=== PATIENT | female | born 1945 | race Caucasian/White ===

== ENCOUNTER 2017-05-11 14:59 | Inpatient (IN) | payer MEDICARE, OTHER ==
[~2017-05-11] VITALS: Ht 160 cm; Wt 68.5 kg
[~2017-05-11 14:59] MED LIST: LIDOCAINE HCL 1% PF 5 ML SYRINGE OTHER ONE; PROPOFOL 200 MG/20 ML AMP IV ONE; SUCCINYLCHOLINE CHLORIDE 100 MG/5 ML SYRINGE IV PUSH ONE
--- NOTE | 2017-05-11 15:46 | PD ---
HPI Chief Complaint: Psychiatric Symptoms Time Seen by Provider: 15:46 Travel History International Travel<30 days: No Contact w/Intl Traveler<30days: No History of Present Illness HPI 71-year-old patient brought in under the Champagne act from her residence with reports of increased psychotic symptoms, and angry outbursts as well as threatening behavior to staff. Patient is an unreliable historian due to her psychosis. She reportedly swallowed a piece of jewelry prior to arrival here. She has no known drug allergies. Call from the at 1900 hrs., patient was discussed in history filled in with history of taking lithium 20 years. Patient recently stopped taking her lithium 1 month ago due to questionable kidney issues. Patient's states that she became more more psychotic and angry over the past several days. He tried to get her to retake her lithium but she refused. This is why he Champagne acted her at this evening. [facility] Past Medical History Medical History: Unable to Obtain Social History Alcohol Use: No Tobacco Use: No Substance Use: No Allergies-Medications (Allergen,Severity, Reaction): Coded Allergies: No Allergy Information Available (Unverified , 05/11/17) Review of Systems ROS Limitations: Psychotic Except as stated in HPI: all other systems reviewed are Neg General / Constitutional: No: Fever Eyes: No: Visual changes HENT: No: Headaches Cardiovascular: No: Chest Pain or Discomfort Respiratory: No: Shortness of Breath Gastrointestinal: No: Abdominal Pain Genitourinary: No: Dysuria Musculoskeletal: No: Pain Skin: No Rash Neurologic: No: Weakness Psychiatric: Positive: Disorder of Thought, Mood Disorder, No: Depression, Suicidal Ideations, Homicidal Ideation Endocrine: No: Polydipsia Hematologic/Lymphatic: No: Easy Bruising Physical Exam Exam Limitations: Psychotic Narrative GENERAL: Patient appears stable. SKIN: Warm and dry. Normal color. Normal turgor. No signs of trauma HEAD: Atraumatic. Normocephalic. EYES: Pupils equal and round. No scleral icterus. No injection or drainage. ENT: No nasal bleeding or discharge. Mucous membranes pink and moist. Pharynx is clear NECK: Trachea midline. Supple and nontender. CARDIOVASCULAR: Regular rate and rhythm. RESPIRATORY: No accessory muscle use. Clear to auscultation. Breath sounds equal bilaterally. GASTROINTESTINAL: Abdomen soft, non-tender, nondistended. Hepatic and splenic margins not palpable. MUSCULOSKELETAL: Extremities without clubbing, cyanosis, or edema. No obvious deformities. NEUROLOGICAL: Awake and alert. No obvious cranial nerve deficits. Motor grossly within normal limits. Five out of 5 muscle strength in the arms and legs. Normal speech. Data Data Last Documented VS Vital Signs Date Time Temp Pulse Resp B/P (MAP) Pulse Ox O2 Delivery O2 Flow Rate FiO2 05/11/17 18:06 64 20 122/72 (89) 95 Room Air Orders Orders Complete Blood Count With Diff (05/11/17 15:49) Comprehensive Metabolic Panel (05/11/17 15:49) Thyroid Stimulating Hormone (05/11/17 15:49) Urinalysis - C+S If Indicated (05/11/17 15:49) Cath For Specimen (05/11/17 15:49) Psych Screen (05/11/17 15:49) Sodium Chloride 0.9% Flush (Ns Flush) (05/11/17 16:00) Haloperidol Inj (Haldol Inj) (05/11/17 16:00) Lorazepam Inj (Ativan Inj) (05/11/17 16:00) Restraints Violent (05/11/17 15:49) Drug Screen, Random Urine (05/11/17 15:49) Alcohol (Ethanol) (05/11/17 15:49) Diphenhydramine Inj (Benadryl Inj) (05/11/17 16:00) Chest, Single Ap (05/11/17 15:55) NPO (05/11/17 18:38) Labs Laboratory Tests Test 05/11/17 16:30 White Blood Count 9.0 TH/MM3 Red Blood Count 4.76 MIL/MM3 Hemoglobin 14.4 GM/DL Hematocrit 42.6 % Mean Corpuscular Volume 89.3 FL Mean Corpuscular Hemoglobin 30.3 PG Mean Corpuscular Hemoglobin Concent 33.9 % Red Cell Distribution Width 13.4 % Platelet Count 337 TH/MM3 Mean Platelet Volume 7.5 FL Neutrophils (%) (Auto) 59.2 % Lymphocytes (%) (Auto) 33.1 % Monocytes (%) (Auto) 6.3 % Eosinophils (%) (Auto) 0.7 % Basophils (%) (Auto) 0.7 % Neutrophils # (Auto) 5.3 TH/MM3 Lymphocytes # (Auto) 3.0 TH/MM3 Monocytes # (Auto) 0.6 TH/MM3 Eosinophils # (Auto) 0.1 TH/MM3 Basophils # (Auto) 0.1 TH/MM3 CBC Comment DIFF FINAL Differential Comment Urine Color YELLOW Urine Turbidity CLEAR Urine pH 5.0 Urine Specific [place] 1.014 Urine Protein NEG mg/dL Urine Glucose (UA) NEG mg/dL Urine Ketones NEG mg/dL Urine Occult Blood NEG Urine Nitrite NEG Urine Bilirubin NEG Urine Urobilinogen LESS THAN 2.0 MG/DL Urine Leukocyte Esterase NEG Urine WBC 1 /hpf Urine Squamous Epithelial Cells <1 /hpf Urine Mucus FEW /lpf Microscopic Urinalysis Comment CULT NOT INDICATED Blood Urea Nitrogen 23 MG/DL Creatinine 1.10 MG/DL Random Glucose 110 MG/DL Total Protein 7.4 GM/DL Albumin 4.0 GM/DL Calcium Level 9.5 MG/DL Alkaline Phosphatase 58 U/L Aspartate Amino Transf (AST/SGOT) 26 U/L Alanine Aminotransferase (ALT/SGPT) 33 U/L Total Bilirubin 0.3 MG/DL Sodium Level 140 MEQ/L Potassium Level 3.7 MEQ/L Chloride Level 109 MEQ/L Carbon Dioxide Level 22.7 MEQ/L Anion Gap 8 MEQ/L Estimat Glomerular Filtration Rate 49 ML/MIN Thyroid Stimulating Hormone 3rd Gen 3.230 uIU/ML Urine Opiates Screen NEG Urine Barbiturates Screen NEG Urine Amphetamines Screen NEG Urine Benzodiazepines Screen NEG Urine Cocaine Screen NEG Urine Cannabinoids Screen NEG Ethyl Alcohol Level LESS THAN 3 MG/DL MDM Medical Decision Making Medical Screen Exam Complete: Yes Emergency Medical Condition: Yes Medical Record Reviewed: Yes Differential Diagnosis Champagne act. Psychosis. Aggressive behavior. Metabolic abnormality. Narrative Course Psychiatric labs ordered as per protocol. Patient is given 2 mg lorazepam IV. Patient is given 50 mg Benadryl IV. Patient is given 5 mg Haldol IM. Soft restraints were applied. X-rays of the chest and abdomen are ordered to rule out foreign body. Chest x-ray shows: Radiopaque foreign body projecting over the distal esophagus. This measures approximately 3.4 x 0.9 cm. Labs are unremarkable. Calls placed to the wet room supervisor. Patient is discussed with Dr. Wynne. He recommends taking the patient to the OR for an endoscopy to remove the foreign body in the esophagus on x-ray. I feel this is medically necessary despite the patient's psychotic state and inability to consent. I cannot medically clear for psychiatric evaluation until this is performed. 1900 hrs. The patient is turned over to Fransisco Kaur PA-C Diagnosis Primary Impression: Esophagus, foreign body Qualified Codes: T18.108A - Unspecified foreign body in esophagus causing other injury, initial encounter Condition: Stable Hernandez Caldwell May 11, 2017 15:46
[2017-05-11] MEDS ORDERED: HALOPERIDOL LACTATE 5 MG/ML AMP IM ONE (16:00)
[2017-05-11] MEDS ORDERED: SODIUM CHLORIDE 0.9% FLUSH 10 ML FLUSH IVF PRN (16:00)
[2017-05-11] MEDS ORDERED: diphenhydrAMINE HCL 50 MG/ML VIAL IV PUSH ONE (16:00)
[2017-05-11] MEDS ORDERED: LORazepam 2 MG/ML VIAL IV PUSH ONE (16:00)
--- NOTE | 2017-05-11 16:15 | RADRPT ---
EXAM DATE/TIME: 05/11/2017 16:00 [facility] COMPARISON: No previous studies available for comparison. INDICATIONS : Swallowed jewlery. MEDICAL HISTORY : None. SURGICAL HISTORY : None. ENCOUNTER: Initial ACUITY: 1 day PAIN SCORE: 0/10 LOCATION: Bilateral chest FINDINGS: A single view of the chest demonstrates the lungs to be symmetrically aerated without evidence of mas s, infiltrate or effusion. The cardiomediastinal contours are unremarkable. Osseous structures are intact. There is a radiopaque density projecting in the region of the distal esophagus but CONCLUSION: 1. Radiopaque foreign body projecting over the distal esophagus. This measures approximately 3.4 x 0. 9 cm Ovidio Gonzales MD on May 11, 2017 at 16:13 Board Certified Radiologist. This report was verified electronically.
[2017-05-11 16:16] VITALS: BP 158/83; PULSE 79; RESP 20; O2SAT 100
[2017-05-11 16:30] VITALS: BP 163/78; PULSE 73; RESP 20; O2SAT 95
[2017-05-11 16:56] VITALS: BP 120/57; PULSE 65; RESP 20; O2SAT 95
[2017-05-11 17:02] LABS: AUTOMATED NEUTROPHIL # 5.3 TH/MM3 (1.8-7.7); BASOPHIL # 0.1 TH/MM3 (0-0.2); BASOPHIL % 0.7 % (0.0-2.0); EOSINOPHIL # 0.1 TH/MM3 (0-0.4); EOSINOPHIL % 0.7 % (0.0-4.0); HEMATOCRIT 42.6 % (35.0-46.0); HEMOGLOBIN 14.4 GM/DL (11.6-15.3); LYMPH % 33.1 % (9.0-44.0); MEAN CELL VOLUME 89.3 FL (80.0-100.0); MEAN CORPUSCULAR HEMOGLOBIN 30.3 PG (27.0-34.0); MEAN CORPUSCULAR HGB CONC 33.9 % (32.0-36.0); MEAN PLATELET VOLUME 7.5 FL (7.0-11.0); MONO % 6.3 % (0.0-8.0); MONOCYTE # 0.6 TH/MM3 (0-0.9); NEUT % 59.2 % (16.0-70.0); PLATELET COUNT 337 TH/MM3 (150-450); RED BLOOD COUNT 4.76 MIL/MM3 (4.00-5.30); RED CELL DISTRIBUTION WIDTH 13.4 % (11.6-17.2)
[2017-05-11 17:05] LABS: BILIRUBIN, URINE NEG (NEG); BLOOD, URINE NEG (NEG); GLUCOSE,URINE NEG (NEG); KETONE, URINE NEG (NEG); MUCUS URINE FEW /lpf (OCC); NITRITE,URINE NEG (NEG); SQUAMOUS EPITHELIAL CELL URINE <1 /hpf (0-5); URINE COLOR YELLOW (YELLW/STRAW); URINE LEUKOCYTE ESTERASE NEG (NEG)
[2017-05-11 17:25] LABS: ALT (GPT) 33 U/L (10-53); AST (GOT) 26 U/L (15-37); BICARBONATE 22.7 MEQ/L (21.0-32.0); BLOOD UREA NITROGEN 23 MG/DL (7-18); CALCIUM 9.5 MG/DL (8.5-10.1); CHLORIDE 109 MEQ/L (98-107); GLOMERULAR FILTRATION RATE 49 ML/MIN (>89); GLUCOSE,RANDOM 110 MG/DL (74-106); SODIUM (NA) 140 MEQ/L (136-145)
[2017-05-11 17:32] LABS: ALKALINE PHOSPHATASE 58 U/L (45-117); TOTAL BILIRUBIN ADULT 0.3 MG/DL (0.2-1.0); TOTAL PROTEIN 7.4 GM/DL (6.4-8.2)
[2017-05-11 18:06] VITALS: BP 122/72; PULSE 64; RESP 20; O2SAT 95
--- NOTE | 2017-05-11 19:58 | GIPROC ---
[facility] [address] [facility]. [facility], [address] EGD PROCEDURE REPORT EXAM DATE: 05/11/2017 PATIENT NAME: Jodi Warren MR #: [id number] BIRTHDATE: 1945 ATTENDING: Diego Campos MD ORDER #: [id number] RESIDENTIAL BUILDING INSPECTOR: Gi Faclon and Jordan Ochoa STATUS: outpatient INDICATIONS: The patient is a 71 yr old female here for an EGD due to foreign body removal from esophagus PROCEDURE PERFORMED: EGD w/ fb removal MEDICATIONS: None and Per Anesthesia. TOPICAL ANESTHETIC: CONSENT: The patient understands the risks and benefits of the procedure and understands that these risks include, but are not limited to: sedation, allergic reaction, infection, perforation and/or bleeding. Alternative means of evaluation and treatment include, among others: physical exam, x-rays, and/or surgical intervention. The patient elects to proceed with this endoscopic procedure. medical equipment was checked for proper function. Hand hygiene and appropriate measures for infection prevention was taken. After the risks, benefits and alternatives of the procedure were thoroughly explained, Informed consent was verified, confirmed and timeout was successfully executed by the treatment team. The patient was anesthetized with topical anesthesia and the Pentax [id number] endoscope was introduced through the mouth and advanced to the second portion of the duodenum. Retroflexed views revealed no abnormalities and Retroflexed views revealed The gastroscope was then slowly withdrawn and removed. ESOPHAGUS: The mucosa of the esophagus appeared normal. STOMACH: FOREIGN BODY IN ESOPHAGUS, metal pendant. Grabbed with rothnet and removed through the mouth easily. DUODENUM: The duodenal mucosa appeared normal. ADVERSE EVENTS: There were no complications. IMPRESSIONS: 1. The esophagus appeared normal 2. FOREIGN BODY IN ESOPHAGUS, metal pendant. Grabbed with rothnet and removed through the mouth easily 3. Normal duodenal mucosa 4. Retroflexed views revealed no abnormalities 5. Retroflexed views revealed RECOMMENDATIONS: Admit to hospital PATIENT CONDITION: stable DISPOSITION: Inpatient REPEAT EXAM: Return as needed for EGD Diego Campos MD eSigned: Diego Campos MD 05/11/2017 7:57 PM cc: PATIENT NAME: Jodi Warren MR#: [id number]
[2017-05-11] MEDS ORDERED: DO NOT ADM ANY ANTICOAGULANT DRUGS PRN (20:06)
[2017-05-11 21:13] VITALS: BP 164/76; PULSE 59; RESP 15; TEMP 98.1; O2SAT 99
--- NOTE | 2017-05-12 00:51 | MB ---
cc: Diego Campos MD,Kenzie Baca DATE OF CONSULT: 05/11/2017 REASON FOR CONSULTATION: Esophageal foreign body. Ms. Warren is a 71-year-old lady who basically was brought in under a Champagne Act because of increased psychotic ideation. Apparently the patient swallowed a piece of her jewelry just prior to arrival. An x-ray was obtained in the emergency room that showed a 3.2 cm metal object in the distal esophagus. GI service was then consulted for foreign body removal. The patient herself is very psychotic, unable to provide any history. History obtained from discussion with the patient's over the phone and from review of medical records. PAST MEDICAL HISTORY: None obtained at this time. SOCIAL HISTORY: No tobacco, no alcohol reported. PAST SURGICAL HISTORY: Unknown. ALLERGIES: NONE DOCUMENTED. REVIEW OF SYSTEMS: The patient is psychotic. She is able to swallow her saliva. Does not appear to be in any visible pain. PHYSICAL EXAMINATION: GENERAL: Reveals a well nourished lady in no apparent distress. VITAL SIGNS: Stable. HEAD AND NECK: Anicteric sclerae. CHEST: Bilaterally ____. ABDOMEN: Soft. Nontender, no hepatosplenomegaly. Bowel sounds are present. CENTRAL NERVOUS SYSTEM: Nonfocal. RECTAL: Deferred at this time. LABORATORY DATA: White cell count is 9, hemoglobin is 14. Creatinine 1.10. Liver function tests are normal. A chest x-ray shows a 3.4 x 0.9 cm metal object projecting over the distal esophagus. IMPRESSION: Esophageal foreign body. RECOMMENDATIONS: Emergent EGD is planned with general anesthesia to remove this foreign body. Apparently this is a metal pendant. Informed consent was obtained from the patient's . Risks of the procedure were explained to him. Further recommendations to follow after the endoscopy. Thank you for this referral. Diego Campos MD HZ/rt , 08:09 PM , 12:49 AM
[2017-05-12 07:15] VITALS: BP 148/67; PULSE 55; RESP 19; O2SAT 97
[2017-05-12 10:00] VITALS: BP 150/77; PULSE 55; RESP 18; O2SAT 97
[2017-05-12 11:30] VITALS: BP 145/75; PULSE 75; RESP 18; TEMP 97.7; O2SAT 98
[2017-05-12] MEDS ORDERED: ALUMINUM/MAGNESIUM/SIMETH 30 ML CUP PO PRN ×2 (11:30)
[2017-05-12] MEDS ORDERED: MAGNESIUM HYDROXIDE SUSP 30 ML CUP PO PRN ×2 (11:30)
[2017-05-12] MEDS ORDERED: NICOTINE 21 MG/24 HR PATCH T-DERMAL SCH (11:30)
[2017-05-12] MEDS ORDERED: LORazepam 2 MG/ML VIAL IM PRN ×4 (11:30)
[2017-05-12] MEDS ORDERED: LORazepam 1 MG TAB PO PRN ×2 (11:30)
[2017-05-12] MEDS ORDERED: LORazepam 0.5 MG TAB PO PRN ×2 (11:30)
[2017-05-12] MEDS ORDERED: ACETAMINOPHEN 325 MG TAB PO PRN (11:30)
[2017-05-12] MEDS ORDERED: VITA500012 PO (11:41)
[2017-05-12] MEDS ORDERED: AMLO10 PO (11:41)
[2017-05-12] MEDS ORDERED: HYDR-3799 PO (11:41)
[2017-05-12] MEDS ORDERED: LITH150C PO (11:41)
[2017-05-12] MEDS ORDERED: LEVO100T5 PO (11:41)
--- NOTE | 2017-05-12 14:52 | HHI.HP ---
Provisional Diagnosis Admission Date May 12, 2017 at 11:23 [place] I. Unspecified psychosis, history of bipolar disorder [place] II. Deferred [place] III. Hypertension, hypothyroidism Certification of Person's Competence To Provide Express and Informed Consent I have personally examined Jodi Warren , a person being served at [facility] on, May 12, 2017 14:42. Express and informed consent means consent voluntarily given in writing, by a competent person, after sufficient explanation and disclosure of the subject matter involved to enable the person to make a knowing and willful decision without any element of force, fraud, deceit, duress, or other form of constraint or coercion. This person is 18 years of age or older, is not now known to be incompetent to consent to treatment with a guardian advocate, and does not have a health care surrogate or proxy currently making medical treatment decisions. I have found this person to be one of the following: [] Competent to provide express and informed consent, as defined above, for voluntary admission to this facility and is competent to provide express and informed consent for treatment. He/she has the consistent capacity to make well reasoned, willful, and knowing decisions concerning his or her medical or mental health treatment. The person fully and consistently understands the purpose of the admission for examination/placement and is fully capable of personally exercising all rights assured under [place] Incompetent to provide express and informed consent to voluntary admission, and this is incompetent to provide express and informed consent to treatment. The person must be transferred to involuntary status and a petition for a guardian advocate filed with the Circuit Court. [x] Refusing to provide express and informed consent to voluntary admission but is competent to provide express and informed consent for treatment. The person must be discharged or transferred to involuntary status. Form shall be completed within 24 hours of a person's arrival at the receiving facility and filed in the clinical record of each person: 1. Admitted on a voluntary basis 2. Permitted to provide express and informed consent to his/her own treatment 3. Allowed to transfer from involuntary to voluntary status 4. Prior to permitting a person to consent to his or her own treatment after having been previously found incompetent to consent to treatment. History of Present Illness Capacity: Lacks Capacity HPI The patient is a 71-year-old, domiciled with her in [place], retired, supported by Social Security, she has psychiatric history of bipolar disorder, previous psychiatric hospitalizations, last hospitalization was in [place] in 1993, she was in lithium for many years, no psychotropics at this moment, she denies previous suicidal attempts, denies history of drug use and alcohol use, medical history of hypertension and hypothyroidism, who was brought in under the Champagne act from her residence with reports of increased psychotic symptoms, and angry outbursts as well as threatening behavior to staff. Patient is an unreliable historian due to her psychosis. She reportedly swallowed a piece of jewelry prior to arrival here. Collateral information from her , [phone], He is stays Patient was discussed in history filled in with history of taking lithium 20 years. Patient recently stopped taking her lithium 1 month ago due to questionable kidney issues. Patient's states that she became more more psychotic and angry over the past several days. He tried to get her to retake her lithium but she refused. This is why he Champagne acted her at this evening. On psychiatric evaluation the patient is oppositional, resistant. But she was sensitive to redirection. The patient is fully oriented 3, at the beginning very reticent. Superficial about circumstances that brought her to the hospital. She denies having any knowledge about the reason she is here. She says that in the last days she has been feeling like objects in her house are trying to communicate with her. She says that she feels sensitive to the surrounding feel like evil is around. Sometime of the interview the patient becomes disorganized and tangential, but easily redirectable. The patient reports sad mood, frequent mood swings, interpersonal problem with her significant other, lack of energy, poor sleep at night, but she denies anhedonia, she denies hopelessness, helplessness, she denies suicidal and homicidal ideation, she denies visual and auditory hallucinations. Review of Systems Constitutional: DENIES: Diaphoretic episodes, Fatigue, Fever, Weight gain, Weight loss, Chills, Dizziness, Change in appetite, Night Sweats Endocrine: DENIES: Abnorml menstrual pattern, Heat/cold intolerance, Polydipsia , Polyuria, Polyphagia Eyes: DENIES: Blurred vision, Diplopia, Eye inflammation, Eye pain, Vision loss , Photosensitivity, Double Vision Ears, nose, mouth, throat: DENIES: Tinnitus, Hearing loss, Vertigo, Nasal discharge, Oral lesions, Throat pain, Hoarseness, Ear Pain, Running Nose, Epistaxis, Sinus Pain, Toothache, Odynophagia Respiratory: DENIES: Apneas, Cough, Snoring, Wheezing, Hemoptysis, Sputum production, Shortness of breath Cardiovascular: DENIES: Chest pain, Palpitations, Syncope, Dyspnea on Exertion , PND, Lower Extremity Edema, Orthopnea, Claudication Gastrointestinal: DENIES: Abdominal pain, Black stools, Bloody stools, Constipation, Diarrhea, Nausea, Vomiting, Difficulty Swallowing, Anorexia Genitourinary: DENIES: Abnormal vaginal bleeding, Dysmenorrhea, Dyspareunia, Sexual dysfunction, Urinary frequency, Urinary incontinence, Urgency, Hematuria , Dysuria, Nocturia, Vaginal discharge Musculoskeletal: DENIES: Joint pain, Muscle aches, Stiffness, Joint Swelling, Back pain, Neck pain Integumentary: DENIES: Abnormal pigmentation, Pruritus, Rash, Nail changes, Breast masses, Breast skin changes, Nipple discharge Hematologic/lymphatic: DENIES: Bruising, Lymphadenopathy Immunologic/allergic: DENIES: Eczema, Urticaria Neurologic: DENIES: Abnormal gait, Headache, Localized weakness, Paresthesias, Seizures, Speech Problems, Tremor, Poor Balance Psychiatric: COMPLAINS OF: Confusion, Delusions, DENIES: Anxiety, Mood changes , Depression, Hallucinations, Agitation, Suicidal Ideation, Homicidal Ideation Past Psych History Violence risk - others (6 mos) Increased Substance Abuse History Drugs/Alcohol past 12 months Denies substance abuse and alcohol abuse Past Family Social History Coded Allergies: No Allergy Information Available (Unverified , 05/11/17) Reported Medications Ergocalciferol (Ergocalciferol) 50,000 Unit Cap, 69999 UNITS PO WEEKLY for Nutritional Supplement, #56 CAP 05/12/17 Amlodipine (Norvasc) 10 Mg Tab, 10 MG PO DAILY for Blood Pressure Management, # 30 TAB 0 Refills 05/12/17 Levothyroxine (Levothyroxine) 100 Mcg Tab, 100 MCG PO DAILY for Thyroid, #30 TAB 0 Refills 05/12/17 [place] Carbonate ([place] Carbonate) 150 Mg Cap, 150 MG PO TID, CAP 0 Refills 05/12/17 Hydralazine HCl (Hydralazine HCl) 25 Mg Tablet, 25 MG PO TID for Blood Pressure Management, #90 TAB 0 Refills 05/12/17 Current Medications Medications (Trade) Dose Ordered Sig/Renata Route Start Time Stop Time Status Last Admin (NS Flush) 2 ml UNSCH PRN IVF 05/11/17 16:00 05/11/17 16:12 Miscellaneous Information ALL NURSING DEPARTME... UNSCH PRN .XX 05/11/17 20:06 05/12/17 20:05 (Tylenol) 650 mg Q4H PRN PO 05/12/17 11:30 (Ativan) 0.5 mg Q12H PRN PO 05/12/17 11:30 (Ativan Inj) 0.5 mg Q12H PRN IM 05/12/17 11:30 (Milk Of Magnesia Liq) 30 ml DAILY PRN PO 05/12/17 11:30 (Mag-Al Plus Susp Liq) 30 ml Q6H PRN PO 05/12/17 11:30 (Habitrol 21 Mg Patch.24 Hr) 1 patch DAILY T-DERMAL 05/12/17 11:30 (SEROquel) 12.5 mg BID@09,12 PO 05/13/17 09:00 UNV Family Psych History He has a son with bipolar disorder Social History Patient was born in [place], she lives in [place] in [place] with her , 2 kids, retired, highest level of education is college Patient's Strengths (min. 2) Family support Physical Exam Vital Signs Vital Signs Date Time Temp Pulse Resp B/P (MAP) Pulse Ox O2 Delivery O2 Flow Rate FiO2 05/12/17 11:35 05/12/17 11:30 97.7 75 18 98 05/12/17 10:00 Room Air 05/11/17 21:00 2 Lab Results Test 05/11/17 16:30 White Blood Count 9.0 TH/MM3 Red Blood Count 4.76 MIL/MM3 Hemoglobin 14.4 GM/DL Hematocrit 42.6 % Mean Corpuscular Volume 89.3 FL Mean Corpuscular Hemoglobin 30.3 PG Mean Corpuscular Hemoglobin Concent 33.9 % Red Cell Distribution Width 13.4 % Platelet Count 337 TH/MM3 Mean Platelet Volume 7.5 FL Neutrophils (%) (Auto) 59.2 % Lymphocytes (%) (Auto) 33.1 % Monocytes (%) (Auto) 6.3 % Eosinophils (%) (Auto) 0.7 % Basophils (%) (Auto) 0.7 % Neutrophils # (Auto) 5.3 TH/MM3 Lymphocytes # (Auto) 3.0 TH/MM3 Monocytes # (Auto) 0.6 TH/MM3 Eosinophils # (Auto) 0.1 TH/MM3 Basophils # (Auto) 0.1 TH/MM3 CBC Comment DIFF FINAL Differential Comment Urine Color YELLOW Urine Turbidity CLEAR Urine pH 5.0 Urine Specific [place] 1.014 Urine Protein NEG mg/dL Urine Glucose (UA) NEG mg/dL Urine Ketones NEG mg/dL Urine Occult Blood NEG Urine Nitrite NEG Urine Bilirubin NEG Urine Urobilinogen LESS THAN 2.0 MG/DL Urine Leukocyte Esterase NEG Urine WBC 1 /hpf Urine Squamous Epithelial Cells <1 /hpf Urine Mucus FEW /lpf Microscopic Urinalysis Comment CULT NOT INDICATED Blood Urea Nitrogen 23 MG/DL Creatinine 1.10 MG/DL Random Glucose 110 MG/DL Total Protein 7.4 GM/DL Albumin 4.0 GM/DL Calcium Level 9.5 MG/DL Alkaline Phosphatase 58 U/L Aspartate Amino Transf (AST/SGOT) 26 U/L Alanine Aminotransferase (ALT/SGPT) 33 U/L Total Bilirubin 0.3 MG/DL Sodium Level 140 MEQ/L Potassium Level 3.7 MEQ/L Chloride Level 109 MEQ/L Carbon Dioxide Level 22.7 MEQ/L Anion Gap 8 MEQ/L Estimat Glomerular Filtration Rate 49 ML/MIN Thyroid Stimulating Hormone 3rd Gen 3.230 uIU/ML Urine Opiates Screen NEG Urine Barbiturates Screen NEG Urine Amphetamines Screen NEG Urine Benzodiazepines Screen NEG Urine Cocaine Screen NEG Urine Cannabinoids Screen NEG Ethyl Alcohol Level LESS THAN 3 MG/DL Mental Status Examination Appearance: Appropriate Consciousness: Alert Orientation: x4 Motor Activity: Normal gait Speech: Hesitant, Slow Language: Adequate Fund of Knowledge: Adequate Attention and Concentration: Adequate Memory: Unremarkable Mood: Angry, Sad Affect: Irritable Thought Process & Associations: Disorganized (at times) Thought Content: Appropriate Hallucination Type: None Delusion Type: None Suicidal Ideation: No Suicidal Plan: No Suicidal Intention: No Homicidal Ideation: No Homicidal Plan: No Homicidal Intention: No Insight: Poor Judgment: Poor Assessment & Plan Problem List: (1) Unspecified psychosis ICD Codes: F29 - Unspecified psychosis not due to a substance or known physiological condition Assessment & Plan: On psychiatric evaluation today the patient at the beginning guarded, internally preoccupied, seems to be paranoid. With redirection she was able to cooperate a little more, but reports symptoms of depression and also reality distortion. She denies suicidal and homicidal ideation, she denies visual and auditory hallucinations. As per report , the patient has been increasingly agitated, disorganized, mostly in the context of stopping her lithium a month ago. The patient has history of bipolar disorder, previous psychiatric hospitalizations she has been stable on lithium for several years. At this moment the patient seems to be in danger to self and others due to level of psychosis. She needs psychiatric hospitalization for stabilization. I'm going to start a low dose of Seroquel for the psychosis, 12.5 mg twice a day. We will consult psychiatry for second opinion, hospitalist to continue medical care of her underlying medical conditions. Her labs are unremarkable. telephone worker intervention. Collateral information, individual and group therapies, to coordinating a safe discharge. Assessment & Plan Estimated LOS: Gio Irby MD May 12, 2017 14:52
[2017-05-12 18:31] VITALS: BP 146/71; PULSE 75; RESP 16; TEMP 98.4; O2SAT 97
[2017-05-12] MEDS ORDERED: LEVO50TA4 PO (20:33)
[2017-05-12] MEDS ORDERED: COLA100C5 PO (20:33)
[2017-05-13 06:00] VITALS: BP 166/80; PULSE 62; RESP 15; TEMP 97.6; O2SAT 99
[2017-05-13] MEDS ORDERED: NICOTINE 21 MG/24 HR PATCH T-DERMAL SCH (09:00)
[2017-05-13] MEDS ORDERED: QUEtiapine FUMARATE 25 MG TAB PO SCH (09:00)
--- NOTE | 2017-05-13 14:09 | HHI.PYPN ---
Subjective Remarks Is a request for second opinion. Patient was seen and case discussed with nursing. Admission note was reviewed and I agree with the contents. Patient remains with various restoration beliefs. She says she swallowed pieces of jewelry to protect herself against the devil. She noticed dragons that her was putting around and believes that he was worshiping Satan. She is alert and oriented 3 but is poor insight into her delusions. She denies suicidal or homicidal ideation intent or plan Mental Status Examination Appearance: Appropriate Consciousness: Alert Orientation: x4 Motor Activity: Normal gait Speech: Hesitant, Slow Language: Adequate Fund of Knowledge: Adequate Attention and Concentration: Adequate Memory: Unremarkable Mood: Angry, Sad Affect: Irritable Thought Process & Associations: Intact Thought Content: Bizarre thinking Hallucination Type: None Delusion Type: Bizarre (bizarre restoration beliefs) Suicidal Ideation: No Suicidal Plan: No Suicidal Intention: No Homicidal Ideation: No Homicidal Plan: No Homicidal Intention: No Insight: Poor Judgment: Poor Results Vitals/IOs Vital Signs Date Time Temp Pulse Resp B/P (MAP) Pulse Ox O2 Delivery O2 Flow Rate FiO2 05/13/17 06:00 97.6 62 15 166/80 (108) 99 05/12/17 10:00 Room Air 05/11/17 21:00 2 Intake and Output 05/13/17 05/13/17 05/14/17 08:00 16:00 00:00 Intake Total 480 ml Balance 480 ml Assessment & Plan Problem List: (1) Unspecified psychosis ICD Codes: F29 - Unspecified psychosis not due to a substance or known physiological condition Assessment & Plan Agree with first opinion to continue petition. Criteria include acute psychosis Justification for Cont. Inpt. Patient would decompensate in a less restrictive setting Rocael Wang DO May 13, 2017 14:09
[2017-05-13 18:00] VITALS: BP 171/82; PULSE 71; RESP 16; TEMP 97.9; O2SAT 98
[2017-05-13] MEDS ORDERED: hydrALAZINE HCL 10 MG TAB PO ONE (22:00)
[2017-05-13] MEDS ORDERED: hydrALAZINE HCL 25 MG TAB PO SCH (22:00)
[2017-05-14 05:15] VITALS: BP 151/89; PULSE 70; RESP 17; TEMP 98.1; O2SAT 98
[2017-05-14] MEDS ORDERED: LEVOTHYROXINE SODIUM 50 MCG TAB PO SCH (07:00)
[2017-05-14] MEDS: QUEtiapine FUMARATE 25 MG TAB PO SCH ×2 (08:24→12:00)
[2017-05-14] MEDS: hydrALAZINE HCL 25 MG TAB PO SCH ×3 (08:24→18:00)
[2017-05-14 09:43] LABS: BICARBONATE 26.3 MEQ/L (21.0-32.0); BLOOD UREA NITROGEN 18 MG/DL (7-18); CALCIUM 9.5 MG/DL (8.5-10.1); CHLORIDE 104 MEQ/L (98-107); CREATININE 0.98 MG/DL (0.50-1.00); GLOMERULAR FILTRATION RATE 56 ML/MIN (>89); GLUCOSE,RANDOM 84 MG/DL (74-106); SODIUM (NA) 140 MEQ/L (136-145)
[2017-05-14 09:45] LABS: CHOLESTEROL 242 MG/DL (120-200)
[2017-05-14 09:47] LABS: CHOLESTEROL/ HDL RATIO 3.93 RATIO; HDL CHOLESTEROL 61.5 MG/DL (40.0-60.0); LDL CHOLESTEROL 126 MG/DL (0-99); TRIGLYCERIDES 275 MG/DL (42-150)
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
[2017-05-14 14:41] VITALS: BP 176/84; PULSE 80
--- NOTE | 2017-05-14 15:43 | PD.TTN ---
Patient Problems 1. Discharge planning 2. Medication compliance 3. Knowledge deficit 4. Lack of coping skills Progress Toward Goals Provider Present: Dr. Clifford Irwin Provider Input: 05/14/17 new over the weekend Psychiatric Counselors Present: Puja Yu LCSW Psych Therapist Input: 05/14/17 patient is manic and not caring to be started on any meds and denied any medications- has supportive family but issues with and not wanting to return to him - daughters and sister willing to support upon discharge Group Spec/RT/OT/BENTON Present: CHETAN King Group Spec/RT/OT/BENTON Input: 05/14/17 new to Rec Puja Castro LCSW May 14, 2017 15:43
[2017-05-14 16:33] LABS: HEMOGLOBIN A1C 5.4 % (4.3-6.0)
[2017-05-14] MEDS ORDERED: hydrALAZINE HCL 25 MG TAB PO SCH (18:00)
[2017-05-14 18:05] VITALS: BP 166/86; PULSE 88; RESP 18; TEMP 98.1; O2SAT 99
[2017-05-15] MEDS: LEVOTHYROXINE SODIUM 100 MCG TAB PO SCH (05:52)
[2017-05-15] MEDS: LEVOTHYROXINE SODIUM 50 MCG TAB PO SCH (05:52)
[2017-05-15 06:04] VITALS: BP 137/69; PULSE 76; RESP 17; TEMP 98.3; O2SAT 97
[2017-05-15] MEDS ORDERED: LEVOTHYROXINE SODIUM 100 MCG TAB PO SCH (07:00)
[2017-05-15 09:00] VITALS: BP 163/82; PULSE 75
[2017-05-15] MEDS: DOCUSATE SODIUM 100 MG CAP PO SCH (09:04)
[2017-05-15] MEDS: hydrALAZINE HCL 25 MG TAB PO SCH ×3 (09:04→18:01)
[2017-05-15] MEDS: QUEtiapine FUMARATE 25 MG TAB PO SCH ×2 (09:06→12:00)
--- NOTE | 2017-05-15 11:58 | HHI.PYPN ---
Subjective Remarks Patient seen in [place] with nurse Wendy, chart review, patient showing mixed compliance medication, discussed patient with nurse. Patient continues with no behavioral issues cooperative with nurse and other patients. However this still remains the absolute denial of mental illness problems there is a superficial entitlement and cooperativeness there is incongruent with her behaviors. We have talked with patient's daughter and . The is the health care surrogate. We've arranged to meet with family at 10 AM tomorrow morning to discuss further care for this lady. She is scheduled for [place] [facility] in 2 days Review of Systems Except as stated in HPI: all other systems reviewed are Neg Mental Status Examination Appearance: Appropriate Consciousness: Alert Orientation: x4 Motor Activity: Normal gait Speech: Hesitant, Slow Language: Adequate Fund of Knowledge: Adequate Attention and Concentration: Adequate Memory: Unremarkable Mood: Angry, Sad Affect: Irritable Thought Process & Associations: Intact Thought Content: Bizarre thinking Hallucination Type: None Delusion Type: Bizarre (bizarre denominational beliefs) Suicidal Ideation: No Suicidal Plan: No Suicidal Intention: No Homicidal Ideation: No Homicidal Plan: No Homicidal Intention: No Insight: Poor Judgment: Poor Results Vitals/IOs Vital Signs Date Time Temp Pulse Resp B/P (MAP) Pulse Ox O2 Delivery O2 Flow Rate FiO2 05/15/17 09:00 75 163/82 (109) 05/15/17 06:04 98.3 17 97 05/12/17 10:00 Room Air 05/11/17 21:00 2 Intake and Output 05/15/17 05/15/17 05/16/17 08:00 16:00 00:00 Intake Total 240 ml Balance 240 ml Assessment & Plan Problem List: (1) Unspecified psychosis ICD Codes: F29 - Unspecified psychosis not due to a substance or known physiological condition (2) Bipolar disorder with psychotic features ICD Codes: F31.9 - Bipolar disorder, unspecified Assessment & Plan Estimated LOS: days patient remains intense vigilant somewhat vaguely psychotic though denying voices or visions suicidality homicidality. Patient has taken her Seroquel this a.m. Will meet with family tomorrow morning to discuss further care and treatment Justification for Cont. Inpt. At this time patient will decompensate of placed in a lower level of care Discharge Planning To be determined Request HC Surrog/Guard Advoc?: Yes Caliendo,Dar E. MD May 15, 2017 11:58
[2017-05-15] MEDS: ACETAMINOPHEN 325 MG TAB PO PRN ×2 (14:36→22:24)
[2017-05-15 16:27] VITALS: BP 187/96
[2017-05-15 17:51] VITALS: BP 153/88
[2017-05-15] MEDS: hydrOXYzine HCL 50 MG TAB PO PRN (23:19)
[2017-05-15] MEDS: cloNIDine HCL 0.1 MG TAB PO PRN (23:31)
[2017-05-16] MEDS: LEVOTHYROXINE SODIUM 50 MCG TAB PO SCH (05:44)
[2017-05-16] MEDS: LEVOTHYROXINE SODIUM 100 MCG TAB PO SCH (05:45)
[2017-05-16 05:50] VITALS: BP 97/52; PULSE 63; RESP 16; TEMP 98.1; O2SAT 97
[2017-05-16 06:00] VITALS: BP 97/53; PULSE 63; RESP 16; TEMP 98.1; O2SAT 97
[2017-05-16 08:35] VITALS: BP 117/60
[2017-05-16] MEDS: hydrALAZINE HCL 25 MG TAB PO SCH ×3 (08:36→17:49)
[2017-05-16] MEDS: QUEtiapine FUMARATE 25 MG TAB PO SCH (08:37)
[2017-05-16] MEDS: DOCUSATE SODIUM 100 MG CAP PO SCH (08:37)
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
[2017-05-16] MEDS ORDERED: QUEtiapine FUMARATE 25 MG TAB PO ONE (12:45)
--- NOTE | 2017-05-16 14:18 | PD.TTN ---
Patient Problems 1. Discharge planning 2. Medication compliance 3. Knowledge deficit 4. Lack of coping skills Progress Toward Goals Provider Present: Dr. Clifford Irwin Provider Input: 05/16/17 [address] to [address] tomorow, intend to medicate if possible/willing or per court, meeting toda 05/14/17 new over the weekend Psychiatric Counselors Present: Puja Yu LCSW Psych Therapist Input: 05/16/17 manic and relilgiously pre occupied and suspicious but cooperating not being a behavioral problem but no medications at all 05/14/17 patient is manic and not caring to be started on any meds and denied any medications- has supportive family but issues with and not wanting to return to him - daughters and sister willing to support upon discharge Group Spec/RT/OT/[place]ON Present: CHETAN King Group Spec/RT/OT/[place] Input: 05/16/17 attends select groups appropriately 05/14/17 new to Rec Puja Castro LCSW May 16, 2017 14:18
--- NOTE | 2017-05-16 16:37 | HHI.PR ---
Subjective Remarks Follow up on patient with HTN, hypothyroidism, BRIT. Patient seen and examined. Patient states she had a headache yesterday but it has resolved. She denies any fever or chills. She denies any chest pain or dyspnea. She denies any nausea, vomiting or abdominal pain. Patient informs me today she is able to take a 5mg Norvasc without having any problems with edema. Low BP, patient denies any dizziness or lightheadedness. Objective Vitals Vital Signs Date Time Temp Pulse Resp B/P (MAP) Pulse Ox O2 Delivery O2 Flow Rate FiO2 05/16/17 08:35 117/60 (79) 05/16/17 06:00 98.1 63 16 97/53 (68) 97 05/16/17 05:50 98.1 63 16 97/52 (67) 97 05/15/17 17:51 153/88 (109) I/O 05/15/17 05/15/17 05/15/17 05/16/17 05/16/17 05/16/17 07:00 15:00 23:00 07:00 15:00 23:00 Intake Total 240 ml 1320 ml 1560 ml Balance 240 ml 1320 ml 1560 ml Intake Oral 240 ml 1320 ml 1560 ml # Voids 1 2 3 2 Result Diagram: 05/14/17 0744 Imaging Last Impressions Chest X-Ray 05/11/17 1555 Signed Impressions: Service Date/Time: Thursday, May 11, 2017 16:00 - CONCLUSION: 1. Radiopaque foreign body projecting over the distal esophagus. This measures approximately 3.4 x 0.9 cm Ovidio Gonzales MD Objective Remarks GENERAL: This is a well-nourished, well-developed female patient, in no apparent distress. Awake and alert. Appears comfortable. SKIN: Cool and dry. HEAD: Atraumatic. Normocephalic. EYES: Extraocular motions intact. No scleral icterus. No injection or drainage. ENT: Nose without bleeding or purulent drainage. Airway patent. MMM. NECK: Trachea midline. CARDIOVASCULAR: Regular rate and rhythm without murmurs, gallops, or rubs. RESPIRATORY: Clear to auscultation. Breath sounds equal bilaterally. No wheezes , rales, or rhonchi. GASTROINTESTINAL: Abdomen soft, non-tender, nondistended. MUSCULOSKELETAL: Extremities without clubbing, cyanosis, or edema. NEUROLOGICAL: Awake and alert. Able to move all extremities spontaneously. No focal neurologic findings appreciated. Normal speech. Medications and IVs Current Medications Medications (Trade) Dose Ordered Sig/Renata Route Start Time Stop Time Status Last Admin (NS Flush) 2 ml UNSCH PRN IVF 05/11/17 16:00 05/11/17 16:12 (Tylenol) 650 mg Q4H PRN PO 05/12/17 11:30 05/15/17 22:24 (Ativan) 0.5 mg Q12H PRN PO 05/12/17 11:30 Future Hold (Ativan Inj) 0.5 mg Q12H PRN IM 05/12/17 11:30 Future Hold (Milk Of Magnesia Liq) 30 ml DAILY PRN PO 05/12/17 11:30 (Mag-Al Plus Susp Liq) 30 ml Q6H PRN PO 05/12/17 11:30 (Norvasc) 10 mg DAILY PO 05/14/17 09:00 05/16/17 08:37 (Atarax) 50 mg Q6H PRN PO 05/14/17 13:45 05/15/17 23:19 (Colace) 100 mg DAILY PO 05/15/17 09:00 05/16/17 08:37 (Synthroid) 50 mcg DAILY@0600 PO 05/15/17 06:00 05/16/17 05:44 (Synthroid) 100 mcg DAILY@0600 PO 05/15/17 06:00 05/16/17 05:45 (Catapres) 0.1 mg Q6H PRN PO 05/14/17 14:00 05/15/17 23:31 (SEROquel) 25 mg BID@09,12 PO 05/17/17 09:00 (Apresoline) 25 mg TID PO 05/16/17 18:00 A/P Assessment and Plan 71-year-old female with a past medical history significant for hypertension, bipolar disorder, chronic kidney disease stage III and hypothyroidism who is admitted to inpatient psychiatric unit after she was brought in under [place] act for acute psychosis. Hospitalist services have been consulted for medical management. Bipolar disorder Acute psychosis -Recently titrated off her lithium due to worsening kidney function -UDS unremarkable -Management per psychiatric team Hypertension, now hypotensive -Decrease dose of Norvasc to 5mg daily and hydralazine to 25mg TID. -Clonidine prn with parameters -Continue to monitor BP and adjust treatment accordingly Hypothyroidism -Continue patient on home dose of levothyroxine 100 g Sunday and 50 g Sunday -TSH within normal limits Dyslipidemia -Discussed with patient and initiation of statin therapy. Patient declines at this time due to trying to limit the number of medications she takes. She prefers to try lifestyle modification. -Recommend patient have repeat lipid profile done in 6-8 weeks as outpatient with her PCP. Tinnitus -Patient has upcoming appointment with ENT as outpatient BRIT on CKD, stage 3 -Resolved -Avoid nephrotoxic agents -Continue to monitor renal indices as indicated Recent ingestion of FB -Reportedly patient knowingly swallowed pendant to help cole off evil spirits -Patient seen in consultation by GI and underwent EGD with retrievable foreign body DVT prophylaxis -Patient is ambulatory Ashley Brandon May 16, 2017 16:37
[2017-05-16 17:30] VITALS: BP 125/60; PULSE 76; RESP 16; TEMP 97.4; O2SAT 98
[2017-05-17] MEDS: hydrOXYzine HCL 50 MG TAB PO PRN (03:08)
[2017-05-17 05:35] VITALS: BP 134/73; PULSE 68; RESP 16; TEMP 98.1; O2SAT 99
[2017-05-17] MEDS: LEVOTHYROXINE SODIUM 50 MCG TAB PO SCH (06:04)
[2017-05-17] MEDS: LEVOTHYROXINE SODIUM 100 MCG TAB PO SCH (06:04)
[2017-05-17] MEDS: hydrALAZINE HCL 25 MG TAB PO SCH ×3 (08:27→18:00)
[2017-05-17] MEDS: DOCUSATE SODIUM 100 MG CAP PO SCH (08:27)
[2017-05-17] MEDS: amLODIPine BESYLATE 5 MG TAB PO SCH (08:27)
[2017-05-17] MEDS: QUEtiapine FUMARATE 25 MG TAB PO SCH ×2 (08:30→12:00)
[2017-05-17 09:10] VITALS: BP 134/73; PULSE 68; RESP 16; TEMP 98.1
--- NOTE | 2017-05-17 12:26 | HHI.PYPN ---
Subjective Remarks Patient seen in [place] [facility], patient retained by Austyn Temple patient's also present in [place] [facility]. Patient became somewhat upset showing her delusions focused on her . will be health care surrogate. Patient has been started on Seroquel she is so far been compliant with that. For now continue treatment Review of Systems Except as stated in HPI: all other systems reviewed are Neg Mental Status Examination Appearance: Appropriate Consciousness: Alert Orientation: x4 Motor Activity: Normal gait Speech: Hesitant, Slow Language: Adequate Fund of Knowledge: Adequate Attention and Concentration: Adequate Memory: Unremarkable Mood: Angry, Sad Affect: Irritable Thought Process & Associations: Intact Thought Content: Bizarre thinking Hallucination Type: None Delusion Type: Bizarre (bizarre samaritan beliefs) Suicidal Ideation: No Suicidal Plan: No Suicidal Intention: No Homicidal Ideation: No Homicidal Plan: No Homicidal Intention: No Insight: Poor Judgment: Poor Results Vitals/IOs Vital Signs Date Time Temp Pulse Resp B/P (MAP) Pulse Ox O2 Delivery O2 Flow Rate FiO2 05/17/17 09:10 98.1 68 16 134/73 (93) 05/17/17 05:35 99 Intake and Output 05/17/17 05/17/17 05/18/17 08:00 16:00 00:00 Intake Total 480 ml 480 ml Balance 480 ml 480 ml Assessment & Plan Problem List: (1) Bipolar disorder, curr episode mixed, severe, with psychotic features ICD Codes: F31.64 - Bipolar disorder, current episode mixed, severe, with psychotic features Assessment & Plan Estimated LOS: days patient retained by [place] [facility] keyboarding teacher Windy, patient started now on Seroquel, to be health care surrogate. Justification for Cont. Inpt. At this time patient will decompensate if placed in a lower level of care Discharge Planning To be determined perhaps pick with family Request HC Surrog/Guard Advoc?: Yes Dar Irwin MD May 17, 2017 12:26
--- NOTE | 2017-05-17 14:27 | HHI.PR ---
Addendum to Inpatient Note Additional Information Patients BP well controlled on present regimen. Continue Norvasc 5mg daily and Hydralazine 25mg TID. Patient is stable from hospitalist standpoint. Will sign off for now. Please reconsult if needed. Ashley Brandon May 17, 2017 14:27
[2017-05-17 17:49] VITALS: BP 124/57; PULSE 76; RESP 16; TEMP 97.4; O2SAT 98
[2017-05-18] MEDS: LEVOTHYROXINE SODIUM 50 MCG TAB PO SCH (06:25)
[2017-05-18] MEDS: LEVOTHYROXINE SODIUM 100 MCG TAB PO SCH (06:25)
[2017-05-18 07:15] VITALS: BP 161/74; PULSE 76; RESP 18; TEMP 97.6; O2SAT 96
[2017-05-18] MEDS: DOCUSATE SODIUM 100 MG CAP PO SCH (08:16)
[2017-05-18] MEDS: amLODIPine BESYLATE 5 MG TAB PO SCH (08:16)
[2017-05-18] MEDS: QUEtiapine FUMARATE 25 MG TAB PO SCH ×3 (08:16→12:37)
[2017-05-18] MEDS: hydrALAZINE HCL 25 MG TAB PO SCH ×3 (08:16→17:44)
--- NOTE | 2017-05-18 11:45 | HHI.PYPN ---
Subjective Remarks Patient seen in day room with nurse Toby, chart review, patient discussed with nurse, patient compliant medications. calm pleasant with me complaining of some sleep issues with discussed medication for that. We will add Seroquel 50 mg at at bedtime to the regimen. Patient still has the same fearsome paranoia focused on her . Otherwise she is no behavior problems at this time Review of Systems Except as stated in HPI: all other systems reviewed are Neg Mental Status Examination Appearance: Appropriate Consciousness: Alert Orientation: x4 Motor Activity: Normal gait Speech: Hesitant, Slow Language: Adequate Fund of Knowledge: Adequate Attention and Concentration: Adequate Memory: Unremarkable Mood: Angry, Sad Affect: Irritable Thought Process & Associations: Intact Thought Content: Bizarre thinking Hallucination Type: None Delusion Type: Bizarre (bizarre zoroastrianism beliefs) Suicidal Ideation: No Suicidal Plan: No Suicidal Intention: No Homicidal Ideation: No Homicidal Plan: No Homicidal Intention: No Insight: Poor Judgment: Poor Results Vitals/IOs Vital Signs Date Time Temp Pulse Resp B/P (MAP) Pulse Ox O2 Delivery O2 Flow Rate FiO2 05/18/17 07:15 97.6 76 18 161/74 (103) 96 Assessment & Plan Problem List: (1) Bipolar disorder, curr episode mixed, severe, with psychotic features ICD Codes: F31.64 - Bipolar disorder, current episode mixed, severe, with psychotic features Assessment & Plan Estimated LOS: days patient remains somewhat delusional focused on her , though she is showing some increase compliance with medication she medication adjustment above Justification for Cont. Inpt. At this time patient will decompensate or placement a lower level of care Discharge Planning Hopefully to return home with Request HC Surrog/Guard Advoc?: Yes Dar Irwin MD May 18, 2017 11:45
[2017-05-18 20:20] VITALS: BP 168/76; PULSE 102; RESP 18; O2SAT 99
[2017-05-18] MEDS ORDERED: QUEtiapine FUMARATE 25 MG TAB PO SCH (21:00)
[2017-05-19] MEDS: LEVOTHYROXINE SODIUM 100 MCG TAB PO SCH (05:53)
[2017-05-19] MEDS: LEVOTHYROXINE SODIUM 50 MCG TAB PO SCH (05:53)
[2017-05-19 06:02] VITALS: BP 171/80; PULSE 77; RESP 18; TEMP 97.6; O2SAT 99
[2017-05-19] MEDS: DOCUSATE SODIUM 100 MG CAP PO SCH (08:17)
[2017-05-19] MEDS: hydrALAZINE HCL 25 MG TAB PO SCH ×3 (08:17→18:00)
[2017-05-19] MEDS: amLODIPine BESYLATE 5 MG TAB PO SCH (08:17)
[2017-05-19] MEDS: QUEtiapine FUMARATE 25 MG TAB PO SCH ×3 (09:00→20:59)
--- NOTE | 2017-05-19 11:47 | HHI.PYPN ---
Subjective Remarks Pt seen and discussed with staff. She refused bedtime dose of seroquel last night but was compliant with mediations today. She continues to express paranoid ideations and is religiously preoccupied. Sleep is poor. She c/o of daytime sleepiness after second dose of seroquel. She adamantly states that she will not take nighttime dose of seroquel because "last time I checked a dollop was more than a pill". Pt later states that she is willing to try a lower dose of seroquel at night first. Mental Status Examination Appearance: Appropriate Consciousness: Alert Orientation: x4 Motor Activity: Normal gait Speech: Hesitant, Slow Language: Adequate Fund of Knowledge: Adequate Attention and Concentration: Adequate Memory: Unremarkable Mood: Irritable Affect: Irritable Thought Process & Associations: Intact Thought Content: Bizarre thinking Hallucination Type: None Delusion Type: Bizarre (bizarre temple beliefs) Suicidal Ideation: No Suicidal Plan: No Suicidal Intention: No Homicidal Ideation: No Homicidal Plan: No Homicidal Intention: No Insight: Poor Judgment: Poor Results Vitals/IOs Vital Signs Date Time Temp Pulse Resp B/P (MAP) Pulse Ox O2 Delivery O2 Flow Rate FiO2 05/19/17 06:02 97.6 77 18 171/80 (110) 99 Intake and Output 05/19/17 05/19/17 05/20/17 08:00 16:00 00:00 Intake Total 240 ml Balance 240 ml Assessment & Plan Problem List: (1) Bipolar disorder, curr episode mixed, severe, with psychotic features ICD Codes: F31.64 - Bipolar disorder, current episode mixed, severe, with psychotic features Assessment & Plan Will adjust timing of daytime seroquel dosing to reduce additive effects and daytime sleepiness. Will reduce evening dose of seroquel to 25mg as pt willing to take and plan to titrate to effective dose. Estimated LOS: days Justification for Cont. Inpt. psychosis Request HC Surrog/Guard Advoc?: Yes Mattie Bateman MD May 19, 2017 11:47
[2017-05-19 18:01] VITALS: BP 148/78; PULSE 79; RESP 18; TEMP 97.8; O2SAT 98
[2017-05-20 05:50] VITALS: BP 157/70; PULSE 73; RESP 18; TEMP 97.7; O2SAT 98
[2017-05-20] MEDS: LEVOTHYROXINE SODIUM 100 MCG TAB PO SCH (06:00)
[2017-05-20 09:00] VITALS: BP 94/66
[2017-05-20] MEDS: amLODIPine BESYLATE 5 MG TAB PO SCH (09:00)
[2017-05-20] MEDS: hydrALAZINE HCL 25 MG TAB PO SCH ×4 (09:00→17:51)
[2017-05-20] MEDS: DOCUSATE SODIUM 100 MG CAP PO SCH (09:07)
[2017-05-20] MEDS: QUEtiapine FUMARATE 25 MG TAB PO SCH ×3 (09:07→20:09)
[2017-05-20 12:11] VITALS: BP 174/84
[2017-05-20 13:51] VITALS: BP 164/84
[2017-05-20] MEDS: cloNIDine HCL 0.1 MG TAB PO PRN (13:52)
--- NOTE | 2017-05-20 16:12 | HHI.PYPN ---
Subjective Remarks Pt seen and discussed with staff. She refused morning and afternoon doses of seroquel. Later she came back to RN and requested to take medication. She was compliant with evening seroquel. She has been less fixed on delusions today. Mental Status Examination Appearance: Appropriate Consciousness: Alert Orientation: x4 Motor Activity: Normal gait Speech: Hesitant, Slow Language: Adequate Fund of Knowledge: Adequate Attention and Concentration: Adequate Memory: Unremarkable Mood: Irritable Affect: Irritable Thought Process & Associations: Intact Thought Content: Bizarre thinking Hallucination Type: None Delusion Type: Bizarre (bizarre christian beliefs) Suicidal Ideation: No Suicidal Plan: No Suicidal Intention: No Homicidal Ideation: No Homicidal Plan: No Homicidal Intention: No Insight: Poor Judgment: Poor Results Vitals/IOs Vital Signs Date Time Temp Pulse Resp B/P (MAP) Pulse Ox O2 Delivery O2 Flow Rate FiO2 05/20/17 13:51 164/84 (110) 05/20/17 05:50 97.7 73 18 98 Intake and Output 05/20/17 05/20/17 05/21/17 08:00 16:00 00:00 Intake Total 620 ml 360 ml Balance 620 ml 360 ml Assessment & Plan Problem List: (1) Bipolar disorder, curr episode mixed, severe, with psychotic features ICD Codes: F31.64 - Bipolar disorder, current episode mixed, severe, with psychotic features Assessment & Plan Continue current tx plan.Estimated LOS: days Justification for Cont. Inpt. psychosis Request HC Surrog/Guard Advoc?: Yes Mattie Bateman MD May 20, 2017 16:12
[2017-05-20 18:06] VITALS: BP 155/69; PULSE 79; RESP 16; TEMP 98; O2SAT 96
[2017-05-21] MEDS: LEVOTHYROXINE SODIUM 50 MCG TAB PO SCH (05:22)
[2017-05-21] MEDS: cloNIDine HCL 0.1 MG TAB PO PRN (05:22)
[2017-05-21 05:36] VITALS: BP 180/83; PULSE 71; RESP 18; TEMP 97.5; O2SAT 98
[2017-05-21] MEDS: DOCUSATE SODIUM 100 MG CAP PO SCH (08:23)
[2017-05-21] MEDS: amLODIPine BESYLATE 5 MG TAB PO SCH (08:23)
[2017-05-21] MEDS: hydrALAZINE HCL 25 MG TAB PO SCH ×3 (08:23→18:00)
[2017-05-21] MEDS: QUEtiapine FUMARATE 25 MG TAB PO SCH (08:25)
--- NOTE | 2017-05-21 10:01 | PD.TTN ---
Patient Problems 1. Discharge planning 2. Medication compliance 3. Knowledge deficit 4. Lack of coping skills Progress Toward Goals Provider Present: Dr. Clifford Irwin Provider Input: 05/21/17 needs to be med compliant, still adjusting medications 05/16/17 [facility], intend to medicate if possible/willing or per court, meeting toda 05/14/17 new over the weekend Nurse(s) Input: 05/21/17: Toby patient sleep improved, wants a call from doctor today, patient is cooperative but keeps refusing Seroquel and wanting it at different times and dosages Psychiatric Counselors Present: Puja Yu LCSW Psych Therapist Input: 05/21/17 spoke with Sunday he is insisting patient needs to be kept from stimuli such as music, TV, certain Males and should not accept phone calls and he would like to be involved in any phone calls coming - he states he would be ok with their daughters calling- he appears frustrated with our care and wants a call from doctor today- patient remains asking to go to a domestic violence penitentiary upon discharge, she played the Piano this weekend and was very pleasant and talked with this counselor about unrelated topics such as exercise and engaged with others on unit well, cooperating and in good behavioral control 05/16/17 manic and relilgiously pre occupied and suspicious but cooperating not being a behavioral problem but no medications at all 05/14/17 patient is manic and not caring to be started on any meds and denied any medications- has supportive family but issues with and not wanting to return to him - daughters and sister willing to support upon discharge Group Spec/RT/OT/BENTON Present: CHETAN King Group Spec/RT/OT/BENTON Input: 05/21/17 Patient attends groups appropriately, engages in projects and is social , able to complete tasks 05/16/17 attends select groups appropriately 05/14/17 new to Rec Puja Castro LCSW May 21, 2017 10:01
[2017-05-21 11:48] VITALS: BP 128/68; PULSE 74
--- NOTE | 2017-05-21 13:48 | HHI.PYPN ---
Subjective Remarks Patient seen in her room with nurse Toby, chart review, patient discussed with nurse. Patient told me that she had initiated a'writ' and that I needed to get myself along here. I attempted to explain with a to P be is corpus per the [place] act the patient refused to acknowledge that. Patient also refusing to take her daily schedule Seroquel is willing to take the at bedtime Seroquel. I will discontinue the daytime Seroquel and increase the at bedtime to 15 mg. Patient continues markedly delusional focusing on her and her need to be in a [facility] senior living. Her daughter is in town will be visiting with patient's this afternoon. An appointment has been scheduled to meet with patient's and daughter tomorrow morning to discuss further care treatment of placement issues Review of Systems Except as stated in HPI: all other systems reviewed are Neg Mental Status Examination Appearance: Appropriate Consciousness: Alert Orientation: x4 Motor Activity: Normal gait Speech: Hesitant, Slow Language: Adequate Fund of Knowledge: Adequate Attention and Concentration: Adequate Memory: Unremarkable Mood: Irritable Affect: Irritable Thought Process & Associations: Intact Thought Content: Bizarre thinking Hallucination Type: None Delusion Type: Bizarre (bizarre judaism beliefs) Suicidal Ideation: No Suicidal Plan: No Suicidal Intention: No Homicidal Ideation: No Homicidal Plan: No Homicidal Intention: No Insight: Poor Judgment: Poor Results Vitals/IOs Vital Signs Date Time Temp Pulse Resp B/P (MAP) Pulse Ox O2 Delivery O2 Flow Rate FiO2 05/21/17 11:48 74 128/68 (88) 05/21/17 05:36 97.5 18 98 Intake and Output 05/21/17 05/21/17 05/22/17 08:00 16:00 00:00 Intake Total 480 ml Balance 480 ml Assessment & Plan Problem List: (1) Bipolar disorder, curr episode mixed, severe, with psychotic features ICD Codes: F31.64 - Bipolar disorder, current episode mixed, severe, with psychotic features Assessment & Plan Estimated LOS: days patient remained psychotic and delusional with very little insight. For now continue treatment. Will be meeting with family tomorrow morning Justification for Cont. Inpt. At this time patient will decompensate if placed in a lower level of care Discharge Planning To be determined Request HC Surrog/Guard Advoc?: Yes Dar Irwin MD May 21, 2017 13:48
[2017-05-21 14:24] VITALS: BP 162/73; PULSE 78
[2017-05-21 18:14] VITALS: BP 134/60; PULSE 71; RESP 18; TEMP 97.1; O2SAT 98
[2017-05-21] MEDS ORDERED: QUEtiapine FUMARATE 25 MG TAB PO SCH (21:00)
[2017-05-22] MEDS: LEVOTHYROXINE SODIUM 100 MCG TAB PO SCH (05:51)
[2017-05-22 06:00] VITALS: BP 132/69; PULSE 61; RESP 16; TEMP 98.1; O2SAT 97
[2017-05-22] MEDS: hydrALAZINE HCL 25 MG TAB PO SCH ×3 (08:38→18:00)
[2017-05-22] MEDS: DOCUSATE SODIUM 100 MG CAP PO SCH (08:38)
[2017-05-22] MEDS: amLODIPine BESYLATE 5 MG TAB PO SCH (08:38)
[2017-05-22 11:00] VITALS: BP 173/82; PULSE 82
[2017-05-22] MEDS ORDERED: ZIPRASIDONE MESYLATE 20 MG VIAL IM PRN (11:00)
[2017-05-22] MEDS: ZIPRASIDONE HCL 20 MG CAP PO SCH ×2 (12:00→20:26)
[2017-05-22 13:35] VITALS: BP 151/67; PULSE 81; O2SAT 99
[2017-05-22 16:00] VITALS: BP 119/67; PULSE 73; RESP 18; TEMP 97.5; O2SAT 96
[2017-05-23 05:30] VITALS: BP 145/67; PULSE 63; RESP 18; TEMP 97.6; O2SAT 98
[2017-05-23] MEDS: LEVOTHYROXINE SODIUM 100 MCG TAB PO SCH (05:50)
[2017-05-23] MEDS: amLODIPine BESYLATE 5 MG TAB PO SCH (08:38)
[2017-05-23] MEDS: DOCUSATE SODIUM 100 MG CAP PO SCH (08:38)
[2017-05-23] MEDS: hydrALAZINE HCL 25 MG TAB PO SCH ×3 (08:38→17:22)
[2017-05-23] MEDS: ZIPRASIDONE HCL 20 MG CAP PO SCH ×2 (08:38→20:35)
--- NOTE | 2017-05-23 13:40 | HHI.PYPN ---
Subjective Remarks Patient seen in day room with nurse, chart reviewed, patient discussed with nurse. Patient continues calm pleasant though somewhat entitled and manipulative. She showing superficial compliance with her medication also. There have been nurses checking at this lady related to cheeking of her medication. There is still no change in her delusional ideation related to her Review of Systems Except as stated in HPI: all other systems reviewed are Neg Mental Status Examination Appearance: Appropriate Consciousness: Alert Orientation: x4 Motor Activity: Normal gait Speech: Hesitant, Slow Language: Adequate Fund of Knowledge: Adequate Attention and Concentration: Adequate Memory: Unremarkable Mood: Irritable Affect: Irritable Thought Process & Associations: Intact Thought Content: Bizarre thinking Hallucination Type: None Delusion Type: Bizarre (bizarre hindu beliefs) Suicidal Ideation: No Suicidal Plan: No Suicidal Intention: No Homicidal Ideation: No Homicidal Plan: No Homicidal Intention: No Insight: Poor Judgment: Poor Results Vitals/IOs Vital Signs Date Time Temp Pulse Resp B/P (MAP) Pulse Ox O2 Delivery O2 Flow Rate FiO2 05/23/17 05:30 97.6 63 18 145/67 (93) 98 Intake and Output 05/23/17 05/23/17 05/24/17 08:00 16:00 00:00 Intake Total 240 ml 240 ml Balance 240 ml 240 ml Assessment & Plan Problem List: (1) Bipolar disorder, curr episode mixed, severe, with psychotic features ICD Codes: F31.64 - Bipolar disorder, current episode mixed, severe, with psychotic features Assessment & Plan Estimated LOS: days patient continue psychotic and delusional, though no behavioral problems. She showing some initial, superficial, compliance with medication Justification for Cont. Inpt. At this time patient will decompensate with placed a lower level of care Discharge Planning Patient continues to refuse placement back with saying she rather go to a woman's detention Request HC Surrog/Guard Advoc?: Yes Dar Irwin MD May 23, 2017 13:40
--- NOTE | 2017-05-23 14:28 | PD.TTN ---
Patient Problems 1. Discharge planning 2. Medication compliance 3. Knowledge deficit 4. Lack of coping skills Progress Toward Goals Provider Present: Dr. Clifford Irwin Provider Input: 05/23/17 started on Geodon, new medication 05/21/17 needs to be med compliant, still adjusting medications 05/16/17 [facility], intend to medicate if possible/willing or per court, meeting toda 05/14/17 new over the weekend Nurse(s) Input: 05/23/17 Nvea: she has taken it and appears a little more calmer and less manic today already 05/21/17: Toby patient sleep improved, wants a call from doctor today, patient is cooperative but keeps refusing Seroquel and wanting it at different times and dosages Psychiatric Counselors Present: Puja Yu LCSW Psych Therapist Input: 05/23/17 she is manic and needs more stabilization still delusional about deamons 05/21/17 spoke with Sunday he is insisting patient needs to be kept from stimuli such as music, TV, certain Males and should not accept phone calls and he would like to be involved in any phone calls coming - he states he would be ok with their daughters calling- he appears frustrated with our care and wants a call from doctor today- patient remains asking to go to a domestic violence assisted upon discharge, she played the Piano this weekend and was very pleasant and talked with this counselor about unrelated topics such as exercise and engaged with others on unit well, cooperating and in good behavioral control 05/16/17 manic and relilgiously pre occupied and suspicious but cooperating not being a behavioral problem but no medications at all 05/14/17 patient is manic and not caring to be started on any meds and denied any medications- has supportive family but issues with and not wanting to return to him - daughters and sister willing to support upon discharge Group Spec/RT/OT/BENTON Present: CHETAN King Group Spec/RT/OT/BENTON Input: 05/23/17 attends gro and continues to have demands/requests to rec therapy 05/21/17 Patient attends groups appropriately, engages in projects and is social , able to complete tasks 05/16/17 attends select groups appropriately 05/14/17 new to Rec Puja Castro LCSW May 23, 2017 14:28
[2017-05-23 18:00] VITALS: BP 142/65; PULSE 67; RESP 18; TEMP 97.6; O2SAT 98
[2017-05-24 04:40] VITALS: BP 128/61; PULSE 60; RESP 17; TEMP 98.1; O2SAT 100
[2017-05-24 04:42] VITALS: BP 131/57; PULSE 67; RESP 16; TEMP 97.4; O2SAT 97
[2017-05-24] MEDS: LEVOTHYROXINE SODIUM 50 MCG TAB PO SCH (06:08)
[2017-05-24] MEDS: ZIPRASIDONE HCL 20 MG CAP PO SCH (08:48)
[2017-05-24] MEDS: DOCUSATE SODIUM 100 MG CAP PO SCH (08:48)
[2017-05-24] MEDS: hydrALAZINE HCL 25 MG TAB PO SCH ×3 (08:48→17:16)
[2017-05-24] MEDS: amLODIPine BESYLATE 5 MG TAB PO SCH (08:48)
--- NOTE | 2017-05-24 12:34 | HHI.PYPN ---
Subjective Remarks Patient seen in day room with nurse Leeann, patient calm pleasant with me compliant with medications, stating she is now considering possibly coming back into the home with certain conditions are met. Those conditions include a priesthood blessing every room in the house a by giving his blessing simply misses a up on the door frame. She also says she may consider possibility of returning with her . Though I question if this is just a statement made for our approval or if it reflects her true feelings. Main event at this time will increase her Geodon to 20 mg a.m. 40 mg at bedtime Review of Systems Except as stated in HPI: all other systems reviewed are Neg Mental Status Examination Appearance: Appropriate Consciousness: Alert Orientation: x4 Motor Activity: Normal gait Speech: Hesitant, Slow Language: Adequate Fund of Knowledge: Adequate Attention and Concentration: Adequate Memory: Unremarkable Mood: Irritable Affect: Irritable Thought Process & Associations: Intact Thought Content: Bizarre thinking Hallucination Type: None Delusion Type: Bizarre (bizarre faith beliefs) Suicidal Ideation: No Suicidal Plan: No Suicidal Intention: No Homicidal Ideation: No Homicidal Plan: No Homicidal Intention: No Insight: Poor Judgment: Poor Results Vitals/IOs Vital Signs Date Time Temp Pulse Resp B/P (MAP) Pulse Ox O2 Delivery O2 Flow Rate FiO2 05/24/17 04:42 97.4 67 16 131/57 (81) 97 Intake and Output 05/24/17 05/24/17 05/24/17 07:59 15:59 23:59 Intake Total 240 ml 240 ml Balance 240 ml 240 ml Assessment & Plan Problem List: (1) Bipolar disorder, curr episode mixed, severe, with psychotic features ICD Codes: F31.64 - Bipolar disorder, current episode mixed, severe, with psychotic features Assessment & Plan Estimated LOS: days patient remains back and psychotic but appears to be softening please see medication adjustments above Justification for Cont. Inpt. At this time patient will decompensate her placed in a lower level of care Discharge Planning There still remains a question of placement either [facility] with family on some type of an [facility] or group home Request HC Surrog/Guard Advoc?: Yes Dar Irwin MD May 24, 2017 12:34
[2017-05-24 18:02] VITALS: BP 142/64; PULSE 72; RESP 17; TEMP 97.6; O2SAT 97
[2017-05-24] MEDS: ZIPRASIDONE HCL 40 MG CAP PO SCH (20:44)
[2017-05-25] MEDS: LEVOTHYROXINE SODIUM 100 MCG TAB PO SCH (05:53)
[2017-05-25] MEDS: DOCUSATE SODIUM 100 MG CAP PO SCH (09:00)
[2017-05-25] MEDS: hydrALAZINE HCL 25 MG TAB PO SCH ×3 (09:03→18:00)
[2017-05-25] MEDS: amLODIPine BESYLATE 5 MG TAB PO SCH (09:03)
[2017-05-25] MEDS: ZIPRASIDONE HCL 20 MG CAP PO SCH (09:03)
[2017-05-25 09:05] VITALS: BP 146/67; PULSE 62; RESP 16; TEMP 98.4; O2SAT 98
--- NOTE | 2017-05-25 11:03 | HHI.PYPN ---
Subjective Remarks Patient seen in day room with nurse Woodward, chart reviewed, patient discussed with nurse. Patient compliant with medication. Says she's having a difficult time finding various clergy to do what she wants done to her house. She states she has not been able to contact her . For now continue treatment no change Review of Systems Except as stated in HPI: all other systems reviewed are Neg Mental Status Examination Appearance: Appropriate Consciousness: Alert Orientation: x4 Motor Activity: Normal gait Speech: Hesitant, Slow Language: Adequate Fund of Knowledge: Adequate Attention and Concentration: Adequate Memory: Unremarkable Mood: Irritable Affect: Irritable Thought Process & Associations: Intact Thought Content: Bizarre thinking Hallucination Type: None Delusion Type: Bizarre (bizarre baptism beliefs) Suicidal Ideation: No Suicidal Plan: No Suicidal Intention: No Homicidal Ideation: No Homicidal Plan: No Homicidal Intention: No Insight: Poor Judgment: Poor Results Vitals/IOs Vital Signs Date Time Temp Pulse Resp B/P (MAP) Pulse Ox O2 Delivery O2 Flow Rate FiO2 05/25/17 09:05 98.4 62 16 146/67 (93) 98 Intake and Output 05/25/17 05/25/17 05/26/17 08:00 16:00 00:00 Intake Total 120 ml 360 ml Balance 120 ml 360 ml Assessment & Plan Problem List: (1) Bipolar disorder, curr episode mixed, severe, with psychotic features ICD Codes: F31.64 - Bipolar disorder, current episode mixed, severe, with psychotic features Assessment & Plan Estimated LOS: days patient remains somewhat manic and daily psychotic but softer. She is compliant with medications. For now continue treatment Justification for Cont. Inpt. At this time patient will decompensate of placed in the lower level of care Discharge Planning Possible return home with family Request HC Surrog/Guard Advoc?: Yes Dar Irwin MD May 25, 2017 11:02
--- NOTE | 2017-05-25 13:09 | HHI.PYPN ---
Subjective Remarks This is a late progress note for my patient visit on 05/22/17. I forgot to dictate this. Patient was seen on that day in dayroom with floor staff, patient was calm and cooperative with me. She was compliant with her medication. Though her core delusions related to her did persist. She has been no behavioral problem. Review of Systems Except as stated in HPI: all other systems reviewed are Neg Mental Status Examination Appearance: Appropriate Consciousness: Alert Orientation: x4 Motor Activity: Normal gait Speech: Hesitant, Slow Language: Adequate Fund of Knowledge: Adequate Attention and Concentration: Adequate Memory: Unremarkable Mood: Irritable Affect: Irritable Thought Process & Associations: Intact Thought Content: Bizarre thinking Hallucination Type: None Delusion Type: Bizarre (bizarre uatsdin beliefs) Suicidal Ideation: No Suicidal Plan: No Suicidal Intention: No Homicidal Ideation: No Homicidal Plan: No Homicidal Intention: No Insight: Poor Judgment: Poor Results Vitals/IOs Vital Signs Date Time Temp Pulse Resp B/P (MAP) Pulse Ox O2 Delivery O2 Flow Rate FiO2 05/25/17 09:05 98.4 62 16 146/67 (93) 98 Intake and Output 05/25/17 05/25/17 05/25/17 07:59 15:59 23:59 Intake Total 120 ml 360 ml Balance 120 ml 360 ml Assessment & Plan Problem List: (1) Bipolar disorder, curr episode mixed, severe, with psychotic features ICD Codes: F31.64 - Bipolar disorder, current episode mixed, severe, with psychotic features Assessment & Plan Estimated LOS: days patient remains somewhat manic and delusional will calm with me today and no significant behavioral problem compliant medication Justification for Cont. Inpt. At this time patient decompensated placed in a lower level of care Discharge Planning Patient continues somewhat vague will continues to talk about woman longterm Request HC Surrog/Guard Advoc?: Yes Dar Irwin MD May 25, 2017 13:09
[2017-05-25 18:03] VITALS: BP 132/68; PULSE 81; RESP 16; TEMP 97.9; O2SAT 97
[2017-05-25] MEDS: ZIPRASIDONE HCL 40 MG CAP PO SCH (21:09)
[2017-05-26] MEDS: LEVOTHYROXINE SODIUM 50 MCG TAB PO SCH (06:00)
[2017-05-26 07:10] VITALS: BP 120/64; PULSE 67; RESP 17; TEMP 98; O2SAT 99
[2017-05-26] MEDS: amLODIPine BESYLATE 5 MG TAB PO SCH (08:30)
[2017-05-26] MEDS: ZIPRASIDONE HCL 20 MG CAP PO SCH (08:30)
[2017-05-26] MEDS: hydrALAZINE HCL 25 MG TAB PO SCH ×3 (08:30→17:48)
[2017-05-26] MEDS: DOCUSATE SODIUM 100 MG CAP PO SCH (08:30)
[2017-05-26 12:27] VITALS: BP 153/76; PULSE 75
--- NOTE | 2017-05-26 17:38 | HHI.PYPN ---
Subjective Remarks Patient was seen and case discussed with nursing. Patient appears religiously preoccupied but less so. She is asking me what she needs to do to be discharged. She does admit to being psychotic before admission and thinks that her episode is resolved. Behaving well on the unit. Mental Status Examination Appearance: Appropriate Consciousness: Alert Orientation: x4 Motor Activity: Normal gait Speech: Hesitant, Slow Language: Adequate Fund of Knowledge: Adequate Attention and Concentration: Adequate Memory: Unremarkable Mood: Irritable Affect: Appropriate Thought Process & Associations: Intact Thought Content: Bizarre thinking Hallucination Type: None Delusion Type: Bizarre (bizarre evangelical beliefs) Suicidal Ideation: No Suicidal Plan: No Suicidal Intention: No Homicidal Ideation: No Homicidal Plan: No Homicidal Intention: No Insight: Poor Judgment: Poor Results Vitals/IOs Vital Signs Date Time Temp Pulse Resp B/P (MAP) Pulse Ox O2 Delivery O2 Flow Rate FiO2 05/26/17 12:27 75 153/76 (101) 05/26/17 07:10 98.0 17 99 Intake and Output 05/26/17 05/26/17 05/27/17 08:00 16:00 00:00 Intake Total 960 ml Balance 960 ml Assessment & Plan Problem List: (1) Bipolar disorder, curr episode mixed, severe, with psychotic features ICD Codes: F31.64 - Bipolar disorder, current episode mixed, severe, with psychotic features Assessment & Plan Continue current treatment plan Justification for Cont. Inpt. Patient would decompensate in a less restrictive setting Request HC Surrog/Guard Advoc?: Yes Rocael Wang DO May 26, 2017 17:38
[2017-05-26 18:09] VITALS: BP 136/64; PULSE 77; RESP 18; TEMP 98.5; O2SAT 97
[2017-05-26] MEDS: ZIPRASIDONE HCL 40 MG CAP PO SCH (20:24)
[2017-05-26 22:30] VITALS: BP 160/74; PULSE 82; RESP 20; O2SAT 97
[2017-05-26] MEDS: cloNIDine HCL 0.1 MG TAB PO PRN (22:46)
[2017-05-27 05:29] VITALS: BP 118/55; PULSE 69; RESP 16; TEMP 97.6; O2SAT 95
[2017-05-27] MEDS: LEVOTHYROXINE SODIUM 100 MCG TAB PO SCH (05:48)
[2017-05-27] MEDS: ZIPRASIDONE HCL 20 MG CAP PO SCH (08:36)
[2017-05-27] MEDS: DOCUSATE SODIUM 100 MG CAP PO SCH (08:36)
[2017-05-27] MEDS: amLODIPine BESYLATE 5 MG TAB PO SCH (08:39)
[2017-05-27] MEDS: hydrALAZINE HCL 25 MG TAB PO SCH ×3 (08:39→18:00)
--- NOTE | 2017-05-27 12:51 | HHI.PYPN ---
Subjective Remarks Patient continues to work on arrangements at home with her . Pulmonary is now fixed and she is adamant a transition assistant less in the house. Patient is alert and oriented 3. Compliant with medications and behaving well on the unit. Mental Status Examination Appearance: Appropriate Consciousness: Alert Orientation: x4 Motor Activity: Normal gait Speech: Hesitant, Slow Language: Adequate Fund of Knowledge: Adequate Attention and Concentration: Adequate Memory: Unremarkable Mood: Irritable Affect: Appropriate Thought Process & Associations: Intact Thought Content: Bizarre thinking Hallucination Type: None Delusion Type: Bizarre (bizarre yazdanism beliefs) Suicidal Ideation: No Suicidal Plan: No Suicidal Intention: No Homicidal Ideation: No Homicidal Plan: No Homicidal Intention: No Insight: Poor Judgment: Poor Results Vitals/IOs Vital Signs Date Time Temp Pulse Resp B/P (MAP) Pulse Ox O2 Delivery O2 Flow Rate FiO2 05/27/17 05:29 97.6 69 16 118/55 (76) 95 Intake and Output 05/27/17 05/27/17 05/28/17 08:00 16:00 00:00 Intake Total 960 ml Balance 960 ml Assessment & Plan Problem List: (1) Bipolar disorder, curr episode mixed, severe, with psychotic features ICD Codes: F31.64 - Bipolar disorder, current episode mixed, severe, with psychotic features Assessment & Plan Continue current treatment plan Justification for Cont. Inpt. Patient would decompensate in a less restrictive setting Request HC Surrog/Guard Advoc?: Yes Rocael Wang DO May 27, 2017 12:51
[2017-05-27 15:45] VITALS: BP 152/73; PULSE 67; RESP 17; TEMP 98.1; O2SAT 96
[2017-05-27] MEDS: ZIPRASIDONE HCL 40 MG CAP PO SCH (20:54)
[2017-05-27 21:00] VITALS: BP 127/61; PULSE 66; RESP 22; O2SAT 95
[2017-05-28 05:29] VITALS: BP 121/56; PULSE 55; RESP 17; TEMP 97.4; O2SAT 98
[2017-05-28] MEDS: LEVOTHYROXINE SODIUM 50 MCG TAB PO SCH (05:47)
[2017-05-28] MEDS: hydrALAZINE HCL 25 MG TAB PO SCH ×3 (08:12→18:18)
[2017-05-28] MEDS: ZIPRASIDONE HCL 20 MG CAP PO SCH (08:12)
[2017-05-28] MEDS: DOCUSATE SODIUM 100 MG CAP PO SCH (08:12)
[2017-05-28] MEDS: amLODIPine BESYLATE 5 MG TAB PO SCH (08:12)
[2017-05-28 14:51] VITALS: BP 131/74; PULSE 66
--- NOTE | 2017-05-28 16:05 | HHI.PYPN ---
Subjective Remarks Patient seen in day room with nurse patient, chart review, patient compliant medication, patient discussed with nurse. Patient continues calm cooperative requested that she be allowed to recite a Salm before meals. I suggested that she ask of the counselor who was doing the spirituality group to allow her to do that and that venue. She agreed. However she still is making demands before showing a willingness to return to her home. She still wants appreciated to come in the house to Blessed just in case or any other dragons or other demons brought in by though small jars her had. For now will increase a.m. Geodon to 40 mg continue at bedtime dose at 40 mg Review of Systems Except as stated in HPI: all other systems reviewed are Neg Mental Status Examination Appearance: Appropriate Consciousness: Alert Orientation: x4 Motor Activity: Normal gait Speech: Hesitant, Slow Language: Adequate Fund of Knowledge: Adequate Attention and Concentration: Adequate Memory: Unremarkable Mood: Irritable Affect: Appropriate Thought Process & Associations: Intact Thought Content: Bizarre thinking Hallucination Type: None Delusion Type: Bizarre (bizarre jainism beliefs) Suicidal Ideation: No Suicidal Plan: No Suicidal Intention: No Homicidal Ideation: No Homicidal Plan: No Homicidal Intention: No Insight: Poor Judgment: Poor Results Vitals/IOs Vital Signs Date Time Temp Pulse Resp B/P (MAP) Pulse Ox O2 Delivery O2 Flow Rate FiO2 05/28/17 14:51 66 131/74 (93) 05/28/17 05:29 97.4 17 98 Intake and Output 05/28/17 05/28/17 05/29/17 08:00 16:00 00:00 Intake Total 240 ml 120 ml Balance 240 ml 120 ml Assessment & Plan Problem List: (1) Bipolar disorder, curr episode mixed, severe, with psychotic features ICD Codes: F31.64 - Bipolar disorder, current episode mixed, severe, with psychotic features Assessment & Plan Estimated LOS: days patient continues somewhat delusional this time focusing more on wanting to have appreciably associated of possible dragons or edema center in the house. She medication adjustment above Justification for Cont. Inpt. At this time patient decompensated placed a lower level of care Discharge Planning Hopefully to return home Request HC Surrog/Guard Advoc?: Yes Dar Irwin MD May 28, 2017 16:05
[2017-05-28 17:32] VITALS: BP 156/73; PULSE 73; RESP 18; O2SAT 99
[2017-05-28 18:15] VITALS: BP 135/65; PULSE 70
[2017-05-28] MEDS: ZIPRASIDONE HCL 40 MG CAP PO SCH (20:13)
[2017-05-29] MEDS: LEVOTHYROXINE SODIUM 100 MCG TAB PO SCH (05:51)
[2017-05-29] MEDS: cloNIDine HCL 0.1 MG TAB PO PRN (05:52)
[2017-05-29 06:20] VITALS: BP 170/79; PULSE 68; RESP 16; TEMP 97.9; O2SAT 98
[2017-05-29] MEDS: ZIPRASIDONE HCL 40 MG CAP PO SCH ×2 (09:00→20:26)
[2017-05-29] MEDS: DOCUSATE SODIUM 100 MG CAP PO SCH (09:00)
[2017-05-29] MEDS: hydrALAZINE HCL 25 MG TAB PO SCH ×3 (09:00→18:17)
[2017-05-29] MEDS: amLODIPine BESYLATE 5 MG TAB PO SCH (09:00)
--- NOTE | 2017-05-29 10:03 | HHI.PYPN ---
Subjective Remarks Patient seen in [place] with nurse Trace and counselor Puja, chart reviewed, patient compliant medications, patient discussed with nurse. While patient no significant behavioral problems on unit she continues somewhat obsessive in her detailed related to [place] with her . Now criticizing him because he emailed a stone that he picked up a parking lot of a [employer] that that solidity but used her name as her return address, she feeling this was him lying. She still questions if throughout her human her dragons in the house. Wanting the house to be blessed by increased. I suggested to her that some of her behaviors might be somewhat obsessive in nature and that perhaps an antidepressant will help with her mood and these behaviors. She became somewhat adamant and refused to consider that. However she is compliant with her other medications. Also with this time she now states she cannot go home with her that he is a liar, that she wishes to go to care home. For now continue treatment Review of Systems Except as stated in HPI: all other systems reviewed are Neg Mental Status Examination Appearance: Appropriate Consciousness: Alert Orientation: x4 Motor Activity: Normal gait Speech: Hesitant, Slow Language: Adequate Fund of Knowledge: Adequate Attention and Concentration: Adequate Memory: Unremarkable Mood: Irritable Affect: Appropriate Thought Process & Associations: Intact Thought Content: Bizarre thinking Hallucination Type: None Delusion Type: Bizarre (bizarre bahai beliefs) Suicidal Ideation: No Suicidal Plan: No Suicidal Intention: No Homicidal Ideation: No Homicidal Plan: No Homicidal Intention: No Insight: Poor Judgment: Poor Results Vitals/IOs Vital Signs Date Time Temp Pulse Resp B/P (MAP) Pulse Ox O2 Delivery O2 Flow Rate FiO2 05/29/17 06:20 97.9 68 16 170/79 (109) 98 Intake and Output 05/29/17 05/29/17 05/29/17 07:59 15:59 23:59 Intake Total 120 ml Balance 120 ml Assessment & Plan Problem List: (1) Bipolar disorder, curr episode mixed, severe, with psychotic features ICD Codes: F31.64 - Bipolar disorder, current episode mixed, severe, with psychotic features Assessment & Plan Estimated LOS: days patient continues psychotic delusional with very little insight with this time she is compliant with her Geodon. For now continue treatment Justification for Cont. Inpt. At this time patient will decompensate his place of the lower level of care Discharge Planning Was continues somewhat confusing with the patient would return home requests some type of a care home consider other living situation Request HC Surrog/Guard Advoc?: Yes Dar Irwin MD May 29, 2017 10:03
[2017-05-29 14:00] VITALS: BP 123/58; PULSE 64
[2017-05-29 17:20] VITALS: BP 131/59; PULSE 65; RESP 16; TEMP 97.1; O2SAT 98
[2017-05-29] MEDS: hydrOXYzine HCL 50 MG TAB PO PRN (22:56)
[2017-05-30] MEDS: LEVOTHYROXINE SODIUM 100 MCG TAB PO SCH (06:00)
[2017-05-30 06:23] VITALS: BP 148/68; PULSE 60; RESP 18; TEMP 97.5; O2SAT 100
[2017-05-30] MEDS: ZIPRASIDONE HCL 40 MG CAP PO SCH ×2 (09:00→20:07)
[2017-05-30] MEDS: amLODIPine BESYLATE 5 MG TAB PO SCH (09:00)
[2017-05-30] MEDS: DOCUSATE SODIUM 100 MG CAP PO SCH (09:00)
[2017-05-30] MEDS: hydrALAZINE HCL 25 MG TAB PO SCH ×3 (09:00→18:08)
--- NOTE | 2017-05-30 09:36 | HHI.PYPN ---
Subjective Remarks Patient seen in day room with nurse Torres, chart reviewed, patient compliant medications, patient discussed with nurse. Patient continues calm cooperative with me that at times some mild deflection of questions. However she states she 's been compliant with her medications denies any attempts at cheeking. Patient now states that she is willing to go home with even before her prescreening, less the house. This time I feel supportive that redirection other family meeting patient, her , counseling myself to determine feasibility of starting discharge planning and preparation perhaps related to return home Review of Systems Except as stated in HPI: all other systems reviewed are Neg Mental Status Examination Appearance: Appropriate Consciousness: Alert Orientation: x4 Motor Activity: Normal gait Speech: Hesitant, Slow Language: Adequate Fund of Knowledge: Adequate Attention and Concentration: Adequate Memory: Unremarkable Mood: Irritable Affect: Appropriate Thought Process & Associations: Intact Thought Content: Bizarre thinking Hallucination Type: None Delusion Type: Bizarre (bizarre quaker beliefs) Suicidal Ideation: No Suicidal Plan: No Suicidal Intention: No Homicidal Ideation: No Homicidal Plan: No Homicidal Intention: No Insight: Poor Judgment: Poor Results Vitals/IOs Vital Signs Date Time Temp Pulse Resp B/P (MAP) Pulse Ox O2 Delivery O2 Flow Rate FiO2 05/30/17 06:23 97.5 60 18 148/68 (94) 100 Intake and Output 05/30/17 05/30/17 05/31/17 08:00 16:00 00:00 Intake Total 0 ml Balance 0 ml Assessment & Plan Problem List: (1) Bipolar disorder, curr episode mixed, severe, with psychotic features ICD Codes: F31.64 - Bipolar disorder, current episode mixed, severe, with psychotic features Assessment & Plan Estimated LOS: days well patient continues to show some psychotic delusional ideation it is softer less intense less duration. Patient states she is not willing to return home will arrange a family meeting of the next few days to discuss this Justification for Cont. Inpt. At this time patient will decompensate if place to the lower level of care Discharge Planning Consider possible return home Request HC Surrog/Guard Advoc?: Yes Dar Irwin MD May 30, 2017 09:36
--- NOTE | 2017-05-30 14:47 | PD.TTN ---
Patient Problems 1. Discharge planning 2. Medication compliance 3. Knowledge deficit 4. Lack of coping skills Progress Toward Goals Provider Present: Dr. Clifford Irwin Provider Input: 05/30/17 still has some fixations and nondenominational delusions, but overall improving and more insightful with medications 05/28/17 patient is still in need for med increase and stabilization, meets criteria 05/23/17 started on Geodon, new medication 05/21/17 needs to be med compliant, still adjusting medications 05/16/17 [facility], intend to medicate if possible/willing or per court, meeting toda 05/14/17 new over the weekend Nurse(s) Input: 05/23/17 Neva: she has taken it and appears a little more calmer and less manic today already 05/21/17: Toby patient sleep improved, wants a call from doctor today, patient is cooperative but keeps refusing Seroquel and wanting it at different times and dosages Psychiatric Counselors Present: Puja Yu LCSW Psych Therapist Input: 05/30/17 open to going home with will call and arrange a meeting for Sunday05/28/17 patient is overall motivated for treatment vs at the [facility] but still suspicious and still overly focused on unrelated issues and somewhat attention seeking 05/23/17 she is manic and needs more stabilization still delusional about deamons 05/21/17 spoke with Sunday he is insisting patient needs to be kept from stimuli such as music, TV, certain Males and should not accept phone calls and he would like to be involved in any phone calls coming - he states he would be ok with their daughters calling- he appears frustrated with our care and wants a call from doctor today- patient remains asking to go to a domestic violence nursing home upon discharge, she played the Piano this weekend and was very pleasant and talked with this counselor about unrelated topics such as exercise and engaged with others on unit well, cooperating and in good behavioral control 05/16/17 manic and relilgiously pre occupied and suspicious but cooperating not being a behavioral problem but no medications at all 05/14/17 patient is manic and not caring to be started on any meds and denied any medications- has supportive family but issues with and not wanting to return to him - daughters and sister willing to support upon discharge Group Spec/RT/OT/BENTON Present: CHETAN King Group Spec/RT/OT/[place]ON Input: 05/30/17 particiaptes still in most groups and is engaging well 05/28/17 partiiciaptes in most groups most of the time appropriately 05/23/17 attends grous and continues to have demands/requests to rec therapy 05/21/17 Patient attends groups appropriately, engages in projects and is social , able to complete tasks 05/16/17 attends select groups appropriately 05/14/17 new to Rec Tx Puja Yu LCSW May 30, 2017 14:47
[2017-05-30 17:57] VITALS: BP 132/64; PULSE 60; RESP 16; TEMP 97.9; O2SAT 99
[2017-05-30] MEDS: hydrOXYzine HCL 50 MG TAB PO PRN (20:07)
[2017-05-31] MEDS: LEVOTHYROXINE SODIUM 50 MCG TAB PO SCH (05:30)
[2017-05-31] MEDS: cloNIDine HCL 0.1 MG TAB PO PRN (05:45)
[2017-05-31 06:05] VITALS: BP 166/74; PULSE 61; RESP 16; TEMP 97.1; O2SAT 99
[2017-05-31] MEDS: DOCUSATE SODIUM 100 MG CAP PO SCH (08:28)
[2017-05-31] MEDS: ZIPRASIDONE HCL 40 MG CAP PO SCH ×2 (08:28→21:33)
[2017-05-31] MEDS: hydrALAZINE HCL 25 MG TAB PO SCH ×3 (08:28→17:39)
[2017-05-31] MEDS: amLODIPine BESYLATE 5 MG TAB PO SCH (08:28)
--- NOTE | 2017-05-31 12:17 | HHI.PYPN ---
Subjective Remarks Patient seen today in her room with nurse Toby. Chart reviewed. Patient compliant medications. Patient discussed with nurse. Patient states she did not sleep well last night. She is aware of our schedule meeting with her tomorrow she is excited about it. Continues to verify that she hopes to go home perhaps tomorrow will increase at bedtime Geodon to 60 mg Review of Systems Except as stated in HPI: all other systems reviewed are Neg Mental Status Examination Appearance: Appropriate Consciousness: Alert Orientation: x4 Motor Activity: Normal gait Speech: Hesitant, Slow Language: Adequate Fund of Knowledge: Adequate Attention and Concentration: Adequate Memory: Unremarkable Mood: Irritable Affect: Appropriate Thought Process & Associations: Intact Thought Content: Bizarre thinking Hallucination Type: None Delusion Type: Bizarre (bizarre yarsani beliefs) Suicidal Ideation: No Suicidal Plan: No Suicidal Intention: No Homicidal Ideation: No Homicidal Plan: No Homicidal Intention: No Insight: Poor Judgment: Poor Results Vitals/IOs Vital Signs Date Time Temp Pulse Resp B/P (MAP) Pulse Ox O2 Delivery O2 Flow Rate FiO2 05/31/17 06:05 97.1 61 16 166/74 (104) 99 Intake and Output 05/31/17 05/31/17 06/01/17 08:00 16:00 00:00 Intake Total 120 ml 1040 ml Balance 120 ml 1040 ml Assessment & Plan Problem List: (1) Bipolar disorder, curr episode mixed, severe, with psychotic features ICD Codes: F31.64 - Bipolar disorder, current episode mixed, severe, with psychotic features Assessment & Plan Estimated LOS: days patient seen today complains of some her sleep last night she medication adjustment above. We are scheduled for meeting with patient's tomorrow Justification for Cont. Inpt. This time patient will decompensate placed in a lower level of care Discharge Planning Possible discharge home with Request HC Surrog/Guard Advoc?: Yes Dar Irwin MD May 31, 2017 12:17
[2017-05-31 14:09] VITALS: BP 107/55; PULSE 60
[2017-05-31 14:42] VITALS: BP 107/55; PULSE 60; RESP 17; TEMP 97.3; O2SAT 98
[2017-05-31 18:00] VITALS: BP 169/69; PULSE 65
[2017-05-31 20:45] VITALS: BP 134/72; PULSE 67
[2017-06-01] MEDS: LEVOTHYROXINE SODIUM 100 MCG TAB PO SCH (05:57)
[2017-06-01 06:29] VITALS: BP 128/73; PULSE 58; RESP 15; TEMP 97.7; O2SAT 100
[2017-06-01] MEDS: amLODIPine BESYLATE 5 MG TAB PO SCH (08:20)
[2017-06-01] MEDS: DOCUSATE SODIUM 100 MG CAP PO SCH (08:20)
[2017-06-01] MEDS: hydrALAZINE HCL 25 MG TAB PO SCH ×2 (08:20→12:40)
[2017-06-01] MEDS: ZIPRASIDONE HCL 40 MG CAP PO SCH (08:20)
[2017-06-01] MEDS ORDERED: HYDR-3799 PO (12:04)
[2017-06-01] MEDS ORDERED: LEVO50TA4 PO (12:04)
[2017-06-01] MEDS ORDERED: LEVO100T5 PO (12:04)
[2017-06-01] MEDS ORDERED: AMLO5 PO (12:04)
[2017-06-01] MEDS ORDERED: ZIPR40 PO (12:04)
--- NOTE | 2017-06-01 12:43 | HHI.DS ---
Psychiatry Discharge Summary Inpatient Psychiatric care?: Yes Advance Directive: No Reason Not Provided: DOES NOT HAVE Mental Health AdvanceDirective: No Health Care Proxy: No Admission Admission Date May 12, 2017 at 11:23 Admission Diagnosis: (1) Bipolar disorder, curr episode mixed, severe, with psychotic features ICD Code: F31.64 - Bipolar disorder, current episode mixed, severe, with psychotic features Brief History The patient is a 71-year-old, domiciled with her in [place], retired, supported by Social Security, she has psychiatric history of bipolar disorder, previous psychiatric hospitalizations, last hospitalization was in [place] in 1993, she was in lithium for many years, no psychotropics at this moment, she denies previous suicidal attempts, denies history of drug use and alcohol use, medical history of hypertension and hypothyroidism, who was brought in under the [place] act from her residence with reports of increased psychotic symptoms, and angry outbursts as well as threatening behavior to staff. Patient is an unreliable historian due to her psychosis. She reportedly swallowed a piece of jewelry prior to arrival here. Collateral information from her , [phone], He is stays Patient was discussed in history filled in with history of taking lithium 20 years. Patient recently stopped taking her lithium 1 month ago due to questionable kidney issues. Patient's states that she became more more psychotic and angry over the past several days. He tried to get her to retake her lithium but she refused. This is why he Champagne acted her at this evening. On psychiatric evaluation the patient is oppositional, resistant. But she was sensitive to redirection. The patient is fully oriented 3, at the beginning very reticent. Superficial about circumstances that brought her to the hospital. She denies having any knowledge about the reason she is here. She says that in the last days she has been feeling like objects in her house are trying to communicate with her. She says that she feels sensitive to the surrounding feel like evil is around. Sometime of the interview the patient becomes disorganized and tangential, but easily redirectable. The patient reports sad mood, frequent mood swings, interpersonal problem with her significant other, lack of energy, poor sleep at night, but she denies anhedonia, she denies hopelessness, helplessness, she denies suicidal and homicidal ideation, she denies visual and auditory hallucinations. Tobacco Use In Past 30 Days: No Tobacco Past 30 Days Alcohol Use: 2-4 Times Per Month Hospital Course Patient's hospital course was initially noted for denial of illness refusal to take medications and fairly significant delusions focused on her sexual behavior. Patient was brought [facility] became guardian advocate. We also did meet with and patient's daughter who verified her father's statements. Patient reluctantly started on Geodon. However and she became more compliant and the medication was adjusted the delusions softened remarkably. Her paranoia and intrusiveness also softened. We did meet today with her . She is willing to come home feels safe going home did suggest to her that they both have counseling which he agreed to, that they see up recent get his blessing she agreed to also. Patient denies suicidality homicidality voices or visions. Thus will be discharged today to follow-up with Dr. in the community with Rx 1 month Results Blood Pressure 128 / 73 Vital Signs Date Time Temp Pulse Resp B/P (MAP) Pulse Ox O2 Delivery O2 Flow Rate FiO2 06/01/17 06:29 97.7 58 15 128/73 (91) 100 Laboratory Results Test 05/14/17 07:44 Cholesterol Level 242 MG/DL (120-200) HDL Cholesterol 61.5 MG/DL (40.0-60.0) Hemoglobin A1c 5.4 % (4.3-6.0) LDL Cholesterol 126 MG/DL (0-99) Triglycerides Level 275 MG/DL (42-150) Summary of Procedures None done Imaging Last Impressions Chest X-Ray 05/11/17 0145 Signed Impressions: Service Date/Time: Thursday, May 11, 2017 16:00 - CONCLUSION: 1. Radiopaque foreign body projecting over the distal esophagus. This measures approximately 3.4 x 0.9 cm Ovidio Gonzales MD Pending results at discharge: No Medications # of Antipsychotic meds at D/C: 1 Approp Antipsych med options 1 - Minimum of three failed multiple trials of monotherapy. 2 - Documented plan to taper to monotherapy due to previous use of multiple meds OR cross-taper in progress at D/C. 3 - Documentation of augmentation of Clozapine. 4 - Justification other than those listed in allowable values 1-3, document here : Discharge Discharge Date: Jun 01, 2017 Discharge Diagnosis: (1) Bipolar disorder, curr episode mixed, severe, with psychotic features Diagnosis: Principal ICD Code: F31.64 - Bipolar disorder, current episode mixed, severe, with psychotic features Pt Condition on Discharge: Stable Discharge Disposition: Discharge Home Discharge Instructions Diet Instructions: As Tolerated, No Restrictions Activities you can perform: Regular-No Restrictions Scheduled Appointment: Dr Jesus Appointment Date: Jun 19, 2017 Discharge Time > 30 minutes Mental Status Examination Appearance: Appropriate Consciousness: Alert Orientation: x4 Motor Activity: Normal gait Speech: Hesitant, Slow Language: Adequate Fund of Knowledge: Adequate Attention and Concentration: Adequate Memory: Unremarkable Mood: Irritable Affect: Appropriate Thought Process & Associations: Intact Thought Content: Bizarre thinking Hallucination Type: None Delusion Type: Bizarre (bizarre confucianist beliefs) Suicidal Ideation: No Suicidal Plan: No Suicidal Intention: No Homicidal Ideation: No Homicidal Plan: No Homicidal Intention: No Insight: Poor Judgment: Poor Discharge/Advance Care Plan Health Problems: (1) Bipolar disorder, curr episode mixed, severe, with psychotic features Goals to promote your health * To prevent worsening of your condition and complications * To maintain your health at the optimal level Directions to meet your goals Take your medications as prescribed Follow your dietary instruction Follow activity as directed Keep your appointments as scheduled Take your immunizations and boosters as scheduled If your symptoms worsen call your PCP, if no PCP go to Urgent Care Center or Emergency Room For 24/ questions related to your inpatient stay or results of tests pending at discharge, please contact Dr. Dar Irwin at Smoking is Dangerous to Your Health. Avoid second hand smoking Dar Irwin MD Jun 01, 2017 12:43
== END 2017-06-01 13:40 | disposition home or self-care (01) | DRG 885 ==
LOC: NEPD 14:59 → NEDA 05-12 11:23 → H250 05-12 11:55
PROVIDERS: ADMIT Psychiatry & Neurology Psychiatry; ATTEND Psychiatry & Neurology Psychiatry
PROC: 0DC58ZZ Extirpation of Matter from Esophagus, Via Natural or Artificial Opening Endoscopic (ICD-10-PCS; principal; 2017-05-11 19:30)
DX: F31.64 Bipolar disorder, current episode mixed, severe, with psychotic features (principal); N17.9 Acute kidney failure, unspecified; I95.9 Hypotension, unspecified; T18.198A Other foreign object in esophagus causing other injury, initial encounter; N18.3 Chronic kidney disease, stage 3 (moderate); I12.9 Hypertensive chronic kidney disease with stage 1 through stage 4 chronic kidney disease, or unspecified chronic kidney disease; E03.9 Hypothyroidism, unspecified; R60.0 Localized edema; E78.5 Hyperlipidemia, unspecified; H93.19 Tinnitus, unspecified ear; Z78.1 Physical restraint status; Z81.8 Family history of other mental and behavioral disorders; Z87.891 Personal history of nicotine dependence; Z91.14 Patient's other noncompliance with medication regimen
CPT/HCPCS: 71045; 80048; 80053; 80061; 80307; 81001; 83036; 84443; 85025; 96372; 96374; J0330; J1200; J1630; J2060